=== PATIENT | male | born 1975 | race Asian ===

== ENCOUNTER 2018-01-28 20:16 | Emergency (ER) | payer MEDICAID ==
[~2018-01-28] VITALS: Ht 180.3 cm; Wt 68.0 kg
[~2018-01-28 20:16] MED LIST: NKM
--- NOTE | 2018-01-28 20:29 | Emergency Room Report ---
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 He performs acupuncture on himself daily. He has chronic neck pain for at least 7 years. In the past he's actually caused lung damage by inserting acupuncture deals to his chest. The pain is severe. Rated 10/10 sharp and aching. Radiates to base of his skull and back of his head. 3 days ago he used acupuncture on the right side of his neck. This ended up causing warmth and then numbness in the left lower leg. The numbness has persisted. The patient denies any fevers or chills. No NVD. No change vision. Aside from numbness as above, no other weakness, incontinence. No blood thinners. No trauma. (Dagoberto Singletary M.D.) Allergies: Coded Allergies: No Known Allergies (Unverified , 01/28/18) Patient History Past Medical History: see triage record Social History: Reports: smoking, drug use Social History Narrative at home Reviewed Nursing Documentation: PMH: Agreed; PSxH: Agreed (Dagoberto Singletary M.D.) Nursing Documentation-PMH Past Medical History: No Stated History (Dagoberto Singletary M.D.) Review of Systems All Other Systems: negative except mentioned in HPI (Dagoberto Singletary M.D.) Physical Exam Vital Signs Date Time Temp Pulse Resp B/P (MAP) Pulse Ox O2 Delivery O2 Flow Rate FiO2 01/28/18 20:08 97.6 90 18 138/89 100 Room Air 97.5 Sp02 EP Interpretation: reviewed, normal General Appearance: well appearing, GCS 15, moderate distress Head: normocephalic Eyes: bilateral eye normal inspection, bilateral eye PERRL ENT: moist mucus membranes - poor dentition Neck: no bony tend, tender - R side Respiratory: chest non-tender, lungs clear, normal breath sounds Cardiovascular #1: regular rate, rhythm Cardiovascular #2: 2+ radial (R) Gastrointestinal: normal inspection, non tender, no mass, non-distended, decreased bowel sounds, scaphoid Genitourinary: no CVA tenderness Musculoskeletal: back normal, gait/station normal, normal range of motion Neurologic: alert, oriented x3, 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 Differential includes reflex cephalgia, exacerbation of neck pain, exacerbation of chronic pain, hematoma amongst others. In addition he has new left leg numbness for 3 days from use of his acupuncture needles. Intracranial bleeding or pathology is not suspected. However CT C-spine with contrast is indicated due to the left leg numbness it's new looking for hematoma. In addition a chest x-ray and labs and EKG will be obtained. The patient will receive a dose of IV Toradol for pain. Labs positive for amphetamine. Patient is improved. Resting calmly and stated pain much better. Awaiting CT results (signed out to Dr. Smith). Laboratory Tests Test 01/28/18 21:10 01/28/18 22:15 White Blood Count 11.0 K/UL (4.8-10.8) H Red Blood Count 5.63 M/UL (4.70-6.10) Hemoglobin 16.9 G/DL (14.2-18.0) Hematocrit 48.8 % (42.0-52.0) Mean Corpuscular Volume 87 FL (80-99) Mean Corpuscular Hemoglobin 30.0 PG (27.0-31.0) Mean Corpuscular Hemoglobin Concent 34.6 G/DL (32.0-36.0) Red Cell Distribution Width 9.8 % (11.6-14.8) L Platelet Count 189 K/UL (150-450) Mean Platelet Volume 7.5 FL (6.5-10.1) Neutrophils (%) (Auto) 80.2 % (45.0-75.0) H Lymphocytes (%) (Auto) 12.5 % (20.0-45.0) L Monocytes (%) (Auto) 6.3 % (1.0-10.0) Eosinophils (%) (Auto) 0.4 % (0.0-3.0) Basophils (%) (Auto) 0.6 % (0.0-2.0) Erythrocyte Sedimentation Rate 1 MM/HR (0-15) Prothrombin Time 10.5 SEC (9.30-11.50) Prothrombin Time INR 1.0 (0.9-1.1) PTT 28 SEC (23-33) Sodium Level 137 MMOL/L (136-145) Potassium Level 3.8 MMOL/L (3.5-5.1) Chloride Level 103 MMOL/L (98-107) Carbon Dioxide Level 25 MMOL/L (21-32) Anion Gap 9 mmol/L (5-15) Blood Urea Nitrogen 15 mg/dL (7-18) Creatinine 0.8 MG/DL (0.55-1.30) Estimate Glomerular Filtration Rate > 60 mL/min (>60) Glucose Level 120 MG/DL (74-106) H Calcium Level 8.7 MG/DL (8.5-10.1) Total Bilirubin 1.0 MG/DL (0.2-1.0) Aspartate Amino Transferase (AST) 46 U/L (15-37) H Alanine Aminotransferase (ALT) 74 U/L (12-78) Alkaline Phosphatase 80 U/L (46-116) C-Reactive Protein, Quantitative < 0.4 mg/dL (0.00-0.90) Total Protein 6.9 G/DL (6.4-8.2) Albumin 3.8 G/DL (3.4-5.0) Globulin 3.1 g/dL Albumin/Globulin Ratio 1.2 (1.0-2.7) Urine Opiates Screen Negative (NEGATIVE) Urine Barbiturates Screen Negative (NEGATIVE) Phencyclidine (PCP) Screen Negative (NEGATIVE) Urine Amphetamines Screen Positive (NEGATIVE) H Urine Benzodiazepines Screen Negative (NEGATIVE) Urine Cocaine Screen Negative (NEGATIVE) Urine Marijuana (THC) Screen Negative (NEGATIVE) (Dagoberto Singletary M.D.) ER Course Patient signout to me for results of CT of the neck. If negative patient go home. The next day. Patient discharged on per Dr. Singletary's instructions. (IVY SMITH M.D.) Chest X-Ray Diagnostic Results Chest X-Ray Diagnostic Results : Chest X-Ray Ordered: Yes # of Views/Limited/Complete: 1 View Indication: Other EP Interpretation: Yes Interpretation: no consolidation, no effusion, no pneumothorax Impression: No acute disease (Dagoberto Singletary M.D.) CT/MRI/US Diagnostic Results CT/MRI/US Diagnostic Results : Imaging Test Ordered: CT c spine contrast (Dagoberto Singletary M.D.) CT/MRI/US Diagnostic Results : Imaging Test Ordered: CT C-spine with IV contrast Impression read by radiologist. Negative. (IVY SMITH M.D.) Last Vital Signs Date Time Temp Pulse Resp B/P (MAP) Pulse Ox O2 Delivery O2 Flow Rate FiO2 01/29/18 00:35 97.5 73 18 128/88 100 Room Air 97.5 Status: improved (Dagoberto Singletary M.D.) Disposition: HOME, SELF-CARE Condition: Improved Scripts Ibuprofen* (MOTRIN*) 600 Mg Tablet 600 MG ORAL Q6H PRN for For Pain, #20 TAB Prov: Dagoberto Singletary M.D. 01/28/18 Dagoberto Singletary M.D. Jan 28, 2018 20:28 IVY SMITH M.D. Jan 29, 2018 00:13
[2018-01-28] MEDS ORDERED: Isovue-300 100ml vial INJ PRN (20:30)
[2018-01-28] MEDS ORDERED: Ketorolac 30mg Inj IV ONE (20:30)
[2018-01-28 21:30] LABS: BASOPHILS % (AUTO) 0.6 % (0.0-2.0); EOSINOPHILS % (AUTO) 0.4 % (0.0-3.0); HEMATOCRIT 48.8 % (42.0-52.0); HEMOGLOBIN 16.9 G/DL (14.2-18.0); LYMPHOCYTES % (AUTO) 12.5 % (20.0-45.0); MEAN CORPUSCULAR VOLUME 87 FL (80-99); MONOCYTES % (AUTO) 6.3 % (1.0-10.0); NEUTROPHILS % (AUTO) 80.2 % (45.0-75.0); PLATELET COUNT 189 K/UL (150-450); RED BLOOD COUNT 5.63 M/UL (4.70-6.10); RED CELL DISTRIBUTION WIDTH 9.8 % (11.6-14.8)
[2018-01-28 21:33] LABS: ANION GAP 9 mmol/L (5-15); BLOOD UREA NITROGEN 15 mg/dL (7-18); CALCIUM 8.7 MG/DL (8.5-10.1); CARBON DIOXIDE 25 MMOL/L (21-32); CHLORIDE 103 MMOL/L (98-107); CREATININE 0.8 MG/DL (0.55-1.30); POTASSIUM 3.8 MMOL/L (3.5-5.1); SODIUM 137 MMOL/L (136-145)
[2018-01-28 21:38] LABS: ALANINE AMINOTRANSFERASE 74 U/L (12-78); ALBUMIN 3.8 G/DL (3.4-5.0); ALBUMIN/GLOBULIN RATIO 1.2 (1.0-2.7); ALKALINE PHOSPHATASE 80 U/L (46-116); ASPARTATE AMINO TRANSFERASE 46 U/L (15-37)
[2018-01-28] MEDS ORDERED: IBUPROFEN600 MG ORAL (23:08)
[2018-01-29 00:34] VITALS: BP 128/88
[2018-01-29 00:35] VITALS: BP 128/88
--- NOTE | 2018-01-29 11:00 | Diagnostic Imaging Report ---
Indication: Chest pain Technique: One view of the chest Comparison: none Findings: Lungs and pleural spaces are clear. Heart size is normal Impression: No acute process
--- NOTE | 2018-01-29 13:01 | Diagnostic Imaging Report ---
Indication: Trauma, neck pain, left lower leg numbness after cervical acupuncture Technique: IV administration nonionic contrast. Spiral acquisitions obtained through the cervical spine. Multiplanar reconstructions were generated. Total dose length product mGycm. CTDIvol(s) 362 mGy. Dose reduction achieved using automated exposure control Comparison: none Findings: Bony alignment is normal. Vertebral body heights are preserved. Disc spaces are preserved. The disc spaces are preserved. The bilateral common and internal carotid arteries, bilateral vertebral arteries appear to be patent and intact. No evidence of epidural abscess. At C2-3, there is central posterior disc protrusion which may impinge slightly upon the anterior aspect of the cord but does not significantly narrow the spinal canal. The neural foramina are preserved. At C5-6, there is broad-based posterior disc protrusion which results in borderline narrowing the spinal canal. No significant neural foraminal stenosis. At C6-7, mild facet arthrosis results in minimal bilateral neural foraminal narrowing. At C7-T1, there is mild right neural foraminal stenosis due to bilateral facet arthrosis. The surrounding soft tissues are unremarkable. No evidence of cervical abscess. The included lung apices are clear. The upper aerodigestive tract appears unremarkable. No unusual contrast enhancement demonstrated Impression: Essentially unremarkable exam. No findings to explain etiology of stated clinical history of neurological symptoms after self attempted acupuncture Consider MRI for more sensitive characterization of the neural elements of the spinal canal, if clinically indicated The CT scanner at [facility] is accredited by the [employer] and the scans are performed using protocols designed to limit radiation exposure to as low as reasonably achievable to attain images of sufficient resolution adequate for diagnostic evaluation. Cervical spine
== END 2018-01-29 00:37 | disposition home or self-care (01) ==
LOC: EDBD 20:16 → EMR 20:26
DX: M54.2 Cervicalgia (principal); F15.10 Other stimulant abuse, uncomplicated
CPT/HCPCS: 36415; 71045; 72126; 80053; 80307; 85025; 85610; 85651; 85730; 86140; 96361; 96374; 99284; J1885; Q9967

== ENCOUNTER 2018-02-01 17:06 | Emergency (ER) | payer MEDICAID ==
[~2018-02-01] VITALS: Ht 180.3 cm; Wt 68.0 kg
[~2018-02-01 17:06] MED LIST changes: +IBUPROFEN600 MG ORAL
[2018-02-01 17:43] VITALS: BP 165/117
[2018-02-01] MEDS ORDERED: Ketorolac 30mg Inj IM ONE (17:45)
--- NOTE | 2018-02-01 17:57 | Emergency Room Report ---
History of Present Illness General Chief Complaint: Neck Pain Source: Patient (Regino Graf) Present Illness HPI 42-year-old male patient presents ER complaining of headache and neck pain for past few days. Patient was placed seen in ER for similar symptoms a few days ago as well as neck pain following acupuncture, reports paraesthesias in left lower leg at that time. Labs and CT of her neck at that time were negative. Reports continued pain since that time. Denies fever, chest pain, shortness of breath. Planing of left-sided head pain. Denies cough, phonophobia or vision loss. Reports sensitivity to light. Denies vomiting. Reports took Aleve for relief of pain prior to arrival to ER, reports was able to drive to ER himself. Denies recent injury or trauma. (Regino Graf) Allergies: Coded Allergies: No Known Allergies (Unverified , 01/28/18) Patient History Past Medical History: see triage record Reviewed Nursing Documentation: PMH: Agreed; PSxH: Agreed (Regino Graf) Nursing Documentation-PMH Past Medical History: No Stated History Hx Neurological Problems: Yes - mom has anurysm (Regino Graf) Review of Systems All Other Systems: negative except mentioned in HPI (Regino Graf) Physical Exam Vital Signs Date Time Temp Pulse Resp B/P (MAP) Pulse Ox O2 Delivery O2 Flow Rate FiO2 02/01/18 17:24 98.7 88 16 165/117 96 Room Air 98.8 Sp02 EP Interpretation: reviewed, normal General Appearance: well appearing, no apparent distress, alert, GCS 15, non- toxic Head: normocephalic, atraumatic Eyes: bilateral eye normal inspection, bilateral eye PERRL ENT: hearing grossly normal, normal pharynx, no angioedema, normal voice, uvula midline, moist mucus membranes Neck: full range of motion Respiratory: lungs clear, normal breath sounds, no rhonchi, no respiratory distress, no accessory muscle use, no wheezing, speaking full sentences Cardiovascular #1: regular rate, rhythm, no edema Gastrointestinal: non tender, soft, no mass, non-distended, no guarding, no rebound Genitourinary: no CVA tenderness Musculoskeletal: back normal, digits/nails normal, gait/station normal, normal range of motion, non-tender Neurologic: alert, oriented x3, 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 Cruz is my supervising Physician whom patient management has been discussed with. (Regino Graf) Diagnostic Impression: Primary Impression: Subarachnoid hematoma ER Course Pt presents to ED c/o headache. DDX considered but are not limited to migraine, cluster RIOS, tension RIOS, meningitis, ICH, HTN, sprain, strain, muscle spasm. negative Kernig, negative Brudzinski, patient afebrile,low suspicion for meningitis. no focal neuro deficits, cranial nerves intact as tested, however due to continue complains of pain and patient's complaint of new-onset worst headache, will order CT of head. VITAL SIGNS are WNL, patient is afebrile. blood pressure mildly elevated, will continue to monitor. ORDERS: - CT head - Metoclopramide 10mg IM for pain, N/V; possible SE: tics, spasm; CI seizures, HTN - Benadryl 25mg IM ; possible SE: drowsiness - Toradol ER COURSE: provide patient with Reglan, Benadryl, Toradol for RIOS migraine. CT of head shows possible hematoma in upper cervical neck, consult with radiologist who advised to repeat CT of neck from patient previous ER visit. Consul with Dr. Cruz, ordered CBC, CMP, PT, PTT. CBC mild elevation of WBCs, patient afebrile, will order blood cultures and provide patient with Vanco abx. CMP unremarkable PT/PTT WNL UA unremarkable, no signs of infection. CT Cervical spine extra-axial hematoma and subarachnoid space. Informed patient of results. Consult with Dr. Cruz, order metoprolol for patient on a blood pressure Patient ordered to be NPO. Patient is AOx3, neurologically intact, nontoxic appearing, and ambulatory. blood pressure rechecked, improved. consult Dr. Cruz, will attempt to transfer patient to neurosurgery department of another hospital. Patient signed out to Dr. Lora. - Please note that this Emergency Department Report was dictated using navigaya technology software, occasionally this can lead to erroneous entry secondary to interpretation by the dictation equipment. Labs Test 02/01/18 18:41 02/01/18 19:24 White Blood Count 15.7 K/UL (4.8-10.8) Red Blood Count 5.45 M/UL (4.70-6.10) Hemoglobin 17.3 G/DL (14.2-18.0) Hematocrit 48.7 % (42.0-52.0) Mean Corpuscular Volume 89 FL (80-99) Mean Corpuscular Hemoglobin 31.7 PG (27.0-31.0) Mean Corpuscular Hemoglobin Concent 35.4 G/DL (32.0-36.0) Red Cell Distribution Width 10.0 % (11.6-14.8) Platelet Count 208 K/UL (150-450) Mean Platelet Volume 6.6 FL (6.5-10.1) Neutrophils (%) (Auto) 79.4 % (45.0-75.0) Lymphocytes (%) (Auto) 12.5 % (20.0-45.0) Monocytes (%) (Auto) 6.4 % (1.0-10.0) Eosinophils (%) (Auto) 1.0 % (0.0-3.0) Basophils (%) (Auto) 0.6 % (0.0-2.0) Prothrombin Time 10.8 SEC (9.30-11.50) Prothromb Time International Ratio 1.0 (0.9-1.1) Activated Partial Thromboplast Time 30 SEC (23-33) Sodium Level 137 MMOL/L (136-145) Potassium Level 3.8 MMOL/L (3.5-5.1) Chloride Level 102 MMOL/L (98-107) Carbon Dioxide Level 29 MMOL/L (21-32) Anion Gap 6 mmol/L (5-15) Blood Urea Nitrogen 17 mg/dL (7-18) Creatinine 0.9 MG/DL (0.55-1.30) Estimat Glomerular Filtration Rate > 60 mL/min (>60) Glucose Level 99 MG/DL (74-106) Calcium Level 9.5 MG/DL (8.5-10.1) Total Bilirubin 0.9 MG/DL (0.2-1.0) Aspartate Amino Transf (AST/SGOT) 41 U/L (15-37) Alanine Aminotransferase (ALT/SGPT) 70 U/L (12-78) Alkaline Phosphatase 85 U/L (46-116) Total Protein 7.7 G/DL (6.4-8.2) Albumin 4.3 G/DL (3.4-5.0) Globulin 3.4 g/dL Albumin/Globulin Ratio 1.3 (1.0-2.7) Urine Color Pale yellow Urine Appearance Clear Urine pH 6 (4.5-8.0) Urine Specific [place] 1.015 (1.005-1.035) Urine Protein Negative (NEGATIVE) Urine Glucose (UA) Negative (NEGATIVE) Urine Ketones Negative (NEGATIVE) Urine Blood Negative (NEGATIVE) Urine Nitrite Negative (NEGATIVE) Urine Bilirubin Negative (NEGATIVE) Urine Urobilinogen Normal MG/DL (0.0-1.0) Urine Leukocyte Esterase Negative (NEGATIVE) (Regino Graf) ER Course Patient signout to me. He was here 4 days ago with neck pain and is on clip bolter and wrapper. Because of his continual pain he was sent here. He was discharged home and came back today because of pain continue. No neurological deficit. CT scan showed decreasing hematoma. We are attempting to transfer the patient but so far unsuccessful. I discussed the case with DIMA Cleary at [facility]. Because patient has decreasing hematoma and has been neurologically intact for the last 4 days, he is stable to wait for an MRI. If there is an epidural abscess, he will accept the patient for transfer. Patient has been stable through the night. He's walking to the bathroom without any difficulty. I will sign the patient out to Dr. Rodriguez for MRI and possible transfer. (IVY SMITH M.D.) ER Course Overnight unable to transfer patient due to full capacity. [facility] requested an MRI MRI performed this morning. Showed possibility of a neoplasm versus a hematoma. Patient still continuing to have pain along with focal neurological deficits Discussed with Dr Millan (neurosurgery) at [facility]. He agreed to accept the patient however no beds are available at this time We attempted to transfer via insurance and unable to contact insurance at this time We contacted [facility], [facility], [facility]; no beds are available (Checo Rodriguez MD) ER Course Patient accepted by [facility] - Dr. Michel. Toradol repeated for pain. Clinically stable for transfer to higher level of care. (Dagoberto Singletary M.D.) ER Course Patient was seen by me. Patient was noted to have concerning CT imaging. Contacted multiple neurosurgery facilities however, no beds available at this time. Patient was endorsed to . (Roni Cruz MD) CT/MRI/US Diagnostic Results CT/MRI/US Diagnostic Results #1: Imaging Test Ordered: CT head Impression Impression: 13 x 7 by at least 16 mm hyperattenuating lesion in the proximal cervical canal, presumably extra-axial hematoma; uncertain as to whether subdural or subarachnoid. Probably present in retrospect on earlier cervical spine CT the smaller currently. Further evaluation with cervical spine CT is recommended. No acute intracranial hemorrhage, edema, or mass effect demonstrated. CT/MRI/US Diagnostic Results #2: Imaging Test Ordered: CT cervical spine Impression Very unusual finding of extra-axial presumed hematoma, probably within the subarachnoid space. This results in compression of the proximal cervical cord. In retrospect, however, this was evident on prior study of 01/28/2018, and the size of this has decreased significantly as has the degree of cord impingement since that study. No unusual contrast enhancement to suggest pseudoaneurysm. However, there is narrowing of the vertebral artery after it enters the foramen magnum. This could just be chronic/developmental, but basal spasm secondary to subarachnoid blood or vasospasm secondary to arterial injury cannot be completely ruled out. The lesion is also immediately adjacent to the PICA, although PICA does appear to be intact. Mild degenerative changes, as described (Regino Graf) Last Vital Signs Date Time Temp Pulse Resp B/P (MAP) Pulse Ox O2 Delivery O2 Flow Rate FiO2 02/01/18 17:43 98.8 16 165/117 96 Room Air 98.8 02/01/18 17:24 88 (Regino Graf) Last Vital Signs Date Time Temp Pulse Resp B/P (MAP) Pulse Ox O2 Delivery O2 Flow Rate FiO2 02/02/18 18:30 98.7 62 16 155/92 100 Room Air 98.7 Status: improved (Dagoberto Singletary M.D.) Disposition: XFER SHT-TRM HOSP Condition: Serious Referrals: NOT CHOSEN IPA/,REFERRING (PCP) Regino Graf Feb 01, 2018 17:57 IVY SMITH M.D. Feb 02, 2018 00:02 Checo Rodriguez MD Feb 02, 2018 14:58 Dagoberto Singletary M.D. Feb 02, 2018 15:41 Roni Cruz MD Feb 02, 2018 16:53
--- NOTE | 2018-02-01 18:40 | Diagnostic Imaging Report ---
Indications: Headache and neck pain, history of recent acupuncture Technique: Spiral acquisitions obtained through the brain. Angled axial and coronal 5 x 5 mm slices were reconstructed. Total dose length product 1463.97 mGycm. CTDI vol(s) 70.38 mGy. Dose reduction achieved using automated exposure control Comparison: Reference made to cervical spine CT dated 01/28/2018 Findings: On the lowest cuts, within the proximal right posterior cervical spinal canal just below the foramen magnum, there is a hyperdense presumed hematoma which measures 13 mm transverse by 7 mm AP by at least 16 mm craniocaudad; caudad extent not completely visualized. Uncertain as to whether subdural or subarachnoid, although current acute margins suggest the latter. This results in some mass effect, impinging upon the posterior aspect of the proximal cord. In retrospect, subtle but larger hyperattenuating area was the lead evident in this area on prior cervical spine CT; previously, this extended above the foramen magnum, and caudad to the mid C2 level. This appears smaller currently although is incompletely visualized. No other acute intracranial hemorrhage nor edema, mass effect, nor midline shift is demonstrated normal lopez-white differentiation. Normal-sized ventricles and extra-axial CSF spaces. Visualized orbits are unremarkable. There is ethmoid and sphenoid sinus disease. The mastoids are clear. The calvarium is intact. Impression: 13 x 7 by at least 16 mm hyperattenuating lesion in the proximal cervical canal, presumably extra-axial hematoma; uncertain as to whether subdural or subarachnoid. Probably present in retrospect on earlier cervical spine CT the smaller currently. Further evaluation with cervical spine CT is recommended. No acute intracranial hemorrhage, edema, or mass effect demonstrated. Critical value findings and recommendation phoned to Regino Graf in the emergency room at the time of interpretation The CT scanner at [facility] is accredited by the [employer] and the scans are performed using protocols designed to limit radiation exposure to as low as reasonably achievable to attain images of sufficient resolution adequate for diagnostic evaluation.
[2018-02-01] MEDS ORDERED: Isovue-300 100ml vial INJ PRN (18:45)
[2018-02-01 18:56] LABS: BASOPHILS % (AUTO) 0.6 % (0.0-2.0); HEMATOCRIT 48.7 % (42.0-52.0); HEMOGLOBIN 17.3 G/DL (14.2-18.0); LYMPHOCYTES % (AUTO) 12.5 % (20.0-45.0); MEAN CORPUSCULAR VOLUME 89 FL (80-99); MONOCYTES % (AUTO) 6.4 % (1.0-10.0); NEUTROPHILS % (AUTO) 79.4 % (45.0-75.0); PLATELET COUNT 208 K/UL (150-450); RED BLOOD COUNT 5.45 M/UL (4.70-6.10); WHITE BLOOD COUNT 15.7 K/UL (4.8-10.8)
[2018-02-01] MEDS ORDERED: Metoprolol 5mg/5ml Inj IVP ONE (19:00)
[2018-02-01 19:06] LABS: ANION GAP 6 mmol/L (5-15); BLOOD UREA NITROGEN 17 mg/dL (7-18); CALCIUM 9.5 MG/DL (8.5-10.1); CARBON DIOXIDE 29 MMOL/L (21-32); CHLORIDE 102 MMOL/L (98-107); CREATININE 0.9 MG/DL (0.55-1.30); POTASSIUM 3.8 MMOL/L (3.5-5.1); SODIUM 137 MMOL/L (136-145)
[2018-02-01 19:10] LABS: ALANINE AMINOTRANSFERASE 70 U/L (12-78); ALBUMIN 4.3 G/DL (3.4-5.0); ALBUMIN/GLOBULIN RATIO 1.3 (1.0-2.7); ALKALINE PHOSPHATASE 85 U/L (46-116); ASPARTATE AMINO TRANSFERASE 41 U/L (15-37); BILIRUBIN,TOTAL 0.9 MG/DL (0.2-1.0)
[2018-02-01 19:32] LABS: APPEARANCE,URINE CLEAR; BILIRUBIN, URINE NEGATIVE (NEGATIVE); COLOR,URINE PALE YELLOW; GLUCOSE, URINE (UA) NEGATIVE (NEGATIVE); KETONES,URINE NEGATIVE (NEGATIVE); LEUKOCYTE ESTERASE ,URINE NEGATIVE (NEGATIVE); NITRITE,URINE NEGATIVE (NEGATIVE); PH,URINE 6 (4.5-8.0); PROTEIN,URINE NEGATIVE (NEGATIVE); UROBILINOGEN,URINE NORMAL MG/DL (0.0-1.0)
[2018-02-01 19:35] VITALS: BP 149/68
--- NOTE | 2018-02-01 20:12 | Diagnostic Imaging Report ---
Indication: Headache and neck pain on the left side, status post self-administered acupuncture Technique: Precontrast spiral acquisitions obtained through the cervical spine. IV administration nonionic contrast. Spiral acquisitions obtained through the cervical spine. Multiplanar reconstructions were generated. Total dose length product total 54 mGycm. CTDIvol(s) 25 x 2 mGy. Radiation dose was minimized using automated exposure control Comparison: 01/28/2018 post contrast only study Findings: There is an extra-axial high attenuation lesion in the proximal cervical spinal canal, extending from the foramen magnum to the level of C1. This currently measures 15 mm transverse by 11 mm AP by 2.1 mm craniocaudad. It is ovoid in appearance, as acute margins with abuts the wall of the spinal canal. It is much smaller than on the previous exam, at which time this lesion, visible in retrospect, measured 25 mm transverse by 22 mm AP by approximately 37 mm craniocaudad. At that time, extending well above the foramen magnum and contact of the inferior left cerebellar tonsil, and extended to below the level of the C1 arch, almost to the level of the C2 arch. There is decreased compression of the proximal cervical cord, although the AP dimension of the spinal canal is narrowed to 9 mm and the cord is deviated to the right of midline. Postcontrast images demonstrate variable areas of narrowing of the left vertebral artery after it enters the foramen magnum. Currently, the hematoma does not directly contact the left vertebral artery, but it is immediately adjacent to the PICA. No enhancement of the hematoma to suggest pseudoaneurysm is demonstrated. No other extra-axial mass or other extra-axial pathology demonstrated. At C2-3, there is mild central posterior disc protrusion which does not result in any significant narrowing the spinal canal. At C5-6, there is mild degenerative disc narrowing. Facet arthrosis results in minimal narrowing of the left neural foramen. Posterior osteophytes and minimal central posterior disc protrusion results in borderline narrowing the spinal canal. At C6-7, mild neural foraminal narrowing results from facet arthrosis. There are ventral posterior osteophytes. These do not significantly narrow the spinal canal. At C7-T1, there is bilateral mild neural foraminal stenosis due to facet arthrosis. The included lung apices are clear. The extra spinal soft tissues are unremarkable. Impression: Very unusual finding of extra-axial presumed hematoma, probably within the subarachnoid space. This results in compression of the proximal cervical cord. In retrospect, however, this was evident on prior study of 01/28/2018, and the size of this has decreased significantly as has the degree of cord impingement since that study. No unusual contrast enhancement to suggest pseudoaneurysm. However, there is narrowing of the vertebral artery after it enters the foramen magnum. This could just be chronic/developmental, but basal spasm secondary to subarachnoid blood or vasospasm secondary to arterial injury cannot be completely ruled out. The lesion is also immediately adjacent to the PICA, although PICA does appear to be intact. Mild degenerative changes, as described . Critical value findings discussed by phone with Dr. Cruz in the emergency room at the time of interpretation The CT scanner at [facility] is accredited by the [employer] and the scans are performed using protocols designed to limit radiation exposure to as low as reasonably achievable to attain images of sufficient resolution adequate for diagnostic evaluation.
[2018-02-01 21:58] VITALS: BP 147/98
[2018-02-01] MEDS ORDERED: Acetaminophen 500mg (ES) tab ORAL ONE ×2 (22:06→22:15)
[2018-02-01] MEDS ORDERED: Vancomycin 1 GM in NS 275 ML IVPB ONE (22:30)
[2018-02-01] MEDS ORDERED: Gadavist 7.5mMol/7.5ml vial IV PRN (23:45)
[2018-02-01 23:54] VITALS: BP 128/85
[2018-02-02] VITALS (8 sets, daily range): BP systolic 133–155; BP diastolic 77–94
[2018-02-02] MEDS ORDERED: Norco 5mg/325mg tab ORAL ONE ×3 (04:15→12:30)
[2018-02-02] MEDS ORDERED: Ketorolac 30mg Inj IV ONE (14:45)
--- NOTE | 2018-02-04 18:02 | Diagnostic Imaging Report ---
Indication: Reason For Exam: PAIN Technique: Sagittal T1 FLAIR, sagittal T2 FRFSE, sagittal STIR, axial T2 FRFSE, pre and postcontrast axial T1 fat saturated, postcontrast sagittal T1 FSE fat saturated images obtained of the cervical spine Comparison: Cervical spine CT dated 02/01/2018 and 01/28/2018 Findings: Within the left posterior upper cervical canal between the foramen magnum and the C1 ring, corresponding to the lesion described on recent CT scan, there is an extra-axial intradural mass which measures 17 x 9 x 21 mm. This demonstrates mixed mostly slightly low T2 signal, mixed mostly slightly high T1 signal. This compresses the posterior lateral aspect of the spinal cord at this level. There is underlying cord myelomalacia demonstrated centrally. This is seen on the T2-weighted images. This lesion demonstrates some peripheral enhancement on the postcontrast images. This lesion appears to be intimately related to the posterior inferior cerebellar artery. The bony alignment is normal. Vertebral body marrow signal is normal. The disc spaces are preserved. The vertebral body heights are preserved. At C4-5, there is minimal bilateral neural foraminal narrowing due to facet arthrosis. At C5-6, there is mild right, mild to moderate left neural foraminal narrowing due to facet arthrosis. At C6-7, there is mild to moderate bilateral neural foraminal stenosis due to facet arthrosis. At the remaining disc levels, no significant disc bulge or protrusion, spinal stenosis, or neural foraminal narrowing. Impression: 17 x 9 x 21 mm extra-axial intradural lesion in the left posterior lateral aspect of the upper cervical canal just below the foramen magnum, corresponding to abnormality described on recent CT scan. This results in compression of the posterior lateral aspect of the spinal cord, as reported on prior CT and there is underlying cervical myelomalacia. Given history of neurological symptoms developing after trauma to this area and given evolution of findings on prior sequential CT scans, favor that this represents a focal hematoma within the subarachnoid space. Adjacency of the PICA raises possibility of trauma to this vessel as etiology. Given the presence of some peripheral enhancement, the possibility of a small pseudoaneurysm or other vascular trauma should be considered. Alternatively, findings could represent an intradural extra-axial mass with peripheral enhancement. Central myelomalacia of the proximal cervical cord, presumably related to the above Mild multilevel neural foraminal stenosis, as detailed above A preliminary report was previously provided to the emergency room by Dipesh. This essentially agrees, with some variation as to the conclusions
== END 2018-02-02 19:41 | disposition short-term general hospital (02) ==
LOC: EMR 17:39
DX: I60.9 Nontraumatic subarachnoid hemorrhage, unspecified (principal)
CPT/HCPCS: 36415; 70450; 72127; 72156; 80053; 81003; 85025; 85610; 85730; 87040; 87181; 96365; 96372; 96375; 99285; A9585; J1885; J3370; J7050; Q9967

== ENCOUNTER 2018-03-05 11:34 | Emergency (ER) | payer MEDICAID ==
[~2018-03-05] VITALS: Ht 180.3 cm; Wt 63.5 kg
[2018-03-05 11:52] VITALS: BP 136/97
[2018-03-05] MEDS ORDERED: Gadavist 7.5mMol/7.5ml vial IV PRN (12:00)
--- NOTE | 2018-03-05 12:22 | Emergency Room Report ---
History of Present Illness General Chief Complaint: Pain Source: Patient Present Illness HPI Patient is a 42-year-old male brought in by self after increased left arm tingling. Patient had the recent surgery at [facility] for similar symptoms. The patient denied any fever. He reports having increased left upper extremity numbness per patient had a prolonged hospitalization at [facility].The patient had been vomiting. He denies any headache. Allergies: Coded Allergies: No Known Allergies (Unverified , 01/28/18) Patient History Past Medical History: see triage record Reviewed Nursing Documentation: PMH: Agreed; PSxH: Agreed Nursing Documentation-PMH Past Medical History: No History, Except For Hx Neurological Problems: Yes - mom has anurysm Review of Systems All Other Systems: negative except mentioned in HPI Physical Exam Vital Signs Date Time Temp Pulse Resp B/P (MAP) Pulse Ox O2 Delivery O2 Flow Rate FiO2 03/05/18 11:41 98.2 91 17 136/97 98 Room Air Sp02 EP Interpretation: reviewed, normal General Appearance: normal inspection, well appearing, no apparent distress, alert, GCS 15 Head: atraumatic ENT: normal ENT inspection, hearing grossly normal, normal voice Neck: normal inspection, full range of motion, supple, no bony tend Respiratory: normal inspection, lungs clear, normal breath sounds, no respiratory distress, no retraction, no wheezing Cardiovascular #1: regular rate, rhythm, no edema Gastrointestinal: normal inspection, normal bowel sounds, non tender, soft, no guarding, no hernia Genitourinary: no CVA tenderness Musculoskeletal: normal inspection, back normal, normal range of motion Neurologic: normal inspection, alert, oriented x3, responsive, weigh boss III-XII nml as tested, speech normal Psychiatric: normal inspection, judgement/insight normal, mood/affect normal Skin: normal inspection, normal color, no rash Medical Decision Making Diagnostic Impression: Primary Impression: Seroma ER Course The patient presented for left upper extremity numbness. The differential diagnosis included was not limited to CVA, abscess, post surgical infection and among others.Because of complexity of patient's case laboratory testing and imaging studies were ordered. The patient was noted to have evidence of prior surgery to his neck. CT imaging of the head showed moderate sized seroma. There is no evidence of cord compression. Post Surgical changes are noted. The patient is advised to follow -up with his neurosurgeon's at [facility] and to contact them today for to arrange an appointment. Labs Test 03/05/18 12:00 White Blood Count 6.6 K/UL (4.8-10.8) Red Blood Count 4.61 M/UL (4.70-6.10) Hemoglobin 13.6 G/DL (14.2-18.0) Hematocrit 40.1 % (42.0-52.0) Mean Corpuscular Volume 87 FL (80-99) Mean Corpuscular Hemoglobin 29.6 PG (27.0-31.0) Mean Corpuscular Hemoglobin Concent 34.0 G/DL (32.0-36.0) Red Cell Distribution Width 11.2 % (11.6-14.8) Platelet Count 303 K/UL (150-450) Mean Platelet Volume 6.5 FL (6.5-10.1) Neutrophils (%) (Auto) 72.0 % (45.0-75.0) Lymphocytes (%) (Auto) 18.7 % (20.0-45.0) Monocytes (%) (Auto) 8.1 % (1.0-10.0) Eosinophils (%) (Auto) 0.3 % (0.0-3.0) Basophils (%) (Auto) 0.8 % (0.0-2.0) Prothrombin Time 11.2 SEC (9.30-11.50) Prothromb Time International Ratio 1.1 (0.9-1.1) Activated Partial Thromboplast Time 27 SEC (23-33) Sodium Level 140 MMOL/L (136-145) Potassium Level 4.1 MMOL/L (3.5-5.1) Chloride Level 104 MMOL/L (98-107) Carbon Dioxide Level 26 MMOL/L (21-32) Anion Gap 10 mmol/L (5-15) Blood Urea Nitrogen 9 mg/dL (7-18) Creatinine 0.9 MG/DL (0.55-1.30) Estimat Glomerular Filtration Rate > 60 mL/min (>60) Glucose Level 105 MG/DL (74-106) Calcium Level 9.2 MG/DL (8.5-10.1) Total Bilirubin 0.7 MG/DL (0.2-1.0) Aspartate Amino Transf (AST/SGOT) 23 U/L (15-37) Alanine Aminotransferase (ALT/SGPT) 40 U/L (12-78) Alkaline Phosphatase 79 U/L (46-116) Total Protein 6.9 G/DL (6.4-8.2) Albumin 3.8 G/DL (3.4-5.0) Globulin 3.1 g/dL Albumin/Globulin Ratio 1.2 (1.0-2.7) Last Vital Signs Date Time Temp Pulse Resp B/P (MAP) Pulse Ox O2 Delivery O2 Flow Rate FiO2 03/05/18 11:52 98.2 17 136/97 98 Room Air 03/05/18 11:41 91 Status: improved Disposition: HOME, SELF-CARE Condition: Stable Roni Cruz MD Mar 05, 2018 12:22
[2018-03-05 12:27] LABS: ANION GAP 10 mmol/L (5-15); BLOOD UREA NITROGEN 9 mg/dL (7-18); CALCIUM 9.2 MG/DL (8.5-10.1); CARBON DIOXIDE 26 MMOL/L (21-32); CHLORIDE 104 MMOL/L (98-107); CREATININE 0.9 MG/DL (0.55-1.30); POTASSIUM 4.1 MMOL/L (3.5-5.1); SODIUM 140 MMOL/L (136-145)
[2018-03-05 12:30] LABS: BASOPHILS % (AUTO) 0.8 % (0.0-2.0); EOSINOPHILS % (AUTO) 0.3 % (0.0-3.0); HEMATOCRIT 40.1 % (42.0-52.0); HEMOGLOBIN 13.6 G/DL (14.2-18.0); INR 1.1 (0.9-1.1); LYMPHOCYTES % (AUTO) 18.7 % (20.0-45.0); MEAN CORPUSCULAR VOLUME 87 FL (80-99); MONOCYTES % (AUTO) 8.1 % (1.0-10.0); PLATELET COUNT 303 K/UL (150-450); RED BLOOD COUNT 4.61 M/UL (4.70-6.10); RED CELL DISTRIBUTION WIDTH 11.2 % (11.6-14.8); WHITE BLOOD COUNT 6.6 K/UL (4.8-10.8)
[2018-03-05 12:38] LABS: ALANINE AMINOTRANSFERASE 40 U/L (12-78); ALBUMIN 3.8 G/DL (3.4-5.0); ALBUMIN/GLOBULIN RATIO 1.2 (1.0-2.7); ALKALINE PHOSPHATASE 79 U/L (46-116); ASPARTATE AMINO TRANSFERASE 23 U/L (15-37); BILIRUBIN,TOTAL 0.7 MG/DL (0.2-1.0)
--- NOTE | 2018-03-05 13:19 | Diagnostic Imaging Report ---
Indication: History of acute hemorrhage at the area of the foramen magnum. Patient status post surgery performed at [facility]. Patient presents now with dizziness and ataxia. Technique: Contiguous 5 mm thick transaxial imaging of the head obtained in a Siemens Sensation [address] scanner. Soft tissue and bone windows generated. Automatic Exposure Control was utilized. Total Dose length Product (DLP): 1773.[address] Dose Index Volume (CTDIvol): 70.38 mGy Comparison: 02/01/2018 CT head and MRI cervical spine Findings: Patient is status post the interval suboccipital craniectomy for decompression of the region of the foramen magnum and evacuation of an acute hematoma seen posterior to the cervical medullary junction on the previous occasion. Currently there is a moderate-sized fluid collection within the surgical bed posterior to the posterior wall the thecal sac within the paraspinous region in keeping with the recent surgery. The thecal sac appears normal without evidence of mass effect. The cord is visualized and shows no evidence of compression. The spinal canal of the upper cervical cord and foramen magnum appears capacious. There is no acute bleed identified. The cerebellum, fourth ventricle and basal cisterns appear normal. Supratentorial brain appears normal. There is no hydrocephalus. No mass effect, edema or acute hemorrhage identified. No midline shift identified. IMPRESSION: No evidence of acute upper cervical or intracranial hemorrhage, mass effect or edema. Status post evacuation of a cervical medullary junction hematoma. Suboccipital craniectomy and resection of the C1 posterior elements noted. Postoperative seroma demonstrated within the surgical bed. These are expected findings given the very recent surgery. Findings were discussed via telephone with Dr. Cruz in the emergency Department. The CT scanner at [facility] is accredited by the [employer] and the scans are performed using dose optimization techniques as appropriate to a performed exam including Automatic Exposure control.
[2018-03-05 13:58] VITALS: BP 134/95
== END 2018-03-05 14:01 | disposition home or self-care (01) ==
LOC: EMR 13:13
DX: L76.34 Postprocedural seroma of skin and subcutaneous tissue following other procedure (principal); Y83.9 Surgical procedure, unspecified as the cause of abnormal reaction of the patient, or of later complication, without mention of misadventure at the time of the procedure; Y92.239 Unspecified place in hospital as the place of occurrence of the external cause
CPT/HCPCS: 36415; 70450; 80053; 85025; 85610; 85730; 99284

== ENCOUNTER 2019-09-08 07:09 | Emergency (ER) | payer MEDICAID, OTHER ==
[~2019-09-08] VITALS: Ht 170.2 cm; Wt 77.1 kg
[~2019-09-08 07:09] MED LIST changes: +BACTRIM DS TAB1 EAC1 ORAL; +CEPHALEXIN500 MG ORAL
--- NOTE | 2019-09-08 07:10 | NUR ---
ED Nurse Note: Pt arrived with RA [id number] from home c/o chronic neck pain x 1 week. pt denies trauma.
[2019-09-08 07:11] VITALS: BP 155/110
--- NOTE | 2019-09-08 07:29 | NUR ---
ED Nurse Note: IV line established, patent and intact. blood specimen sent to lab
[2019-09-08] MEDS ORDERED: Gadavist 7.5mMol/7.5ml vial IV PRN ×2 (07:30)
--- NOTE | 2019-09-08 07:36 | NUR ---
ED Nurse Note: Urine specimen sent to lab
[2019-09-08] MEDS ORDERED: cefTRIAXone 1 GM in NS 55 ML IVPB ONE (07:45)
[2019-09-08 07:58] LABS: BASOPHILS % (AUTO) 0.8 % (0.0-2.0); EOSINOPHILS % (AUTO) 2.3 % (0.0-3.0); HEMATOCRIT 47.4 % (42.0-52.0); HEMOGLOBIN 16.4 G/DL (14.2-18.0); LYMPHOCYTES % (AUTO) 22.3 % (20.0-45.0); MEAN CORPUSCULAR VOLUME 83 FL (80-99); MONOCYTES % (AUTO) 6.4 % (1.0-10.0); NEUTROPHILS % (AUTO) 68.2 % (45.0-75.0); PLATELET COUNT 241 K/UL (150-450); RED BLOOD COUNT 5.69 M/UL (4.70-6.10); WHITE BLOOD COUNT 7.6 K/UL (4.8-10.8)
[2019-09-08 08:00] LABS: ANION GAP 9 mmol/L (5-15); BLOOD UREA NITROGEN 13 mg/dL (7-18); CALCIUM 9.1 MG/DL (8.5-10.1); CARBON DIOXIDE 28 MMOL/L (21-32); CHLORIDE 104 MMOL/L (98-107); SODIUM 141 MMOL/L (136-145)
[2019-09-08 08:07] LABS: INR 0.9 (0.9-1.1)
[2019-09-08 08:08] LABS: ALANINE AMINOTRANSFERASE 21 U/L (12-78); ALBUMIN 3.8 G/DL (3.4-5.0); ALBUMIN/GLOBULIN RATIO 1.2 (1.0-2.7); ALKALINE PHOSPHATASE 95 U/L (46-116); ASPARTATE AMINO TRANSFERASE 19 U/L (15-37); BILIRUBIN,TOTAL 0.9 MG/DL (0.2-1.0)
[2019-09-08] MEDS ORDERED: Omnipaque-300 100ml vial INJ PRN (08:15)
[2019-09-08] MEDS ORDERED: Omnipaque-300 100ml vial INJ ONE (08:15)
--- NOTE | 2019-09-08 08:18 | NUR ---
ED Nurse Note: Pt taken to CT on wheel chair with construction equipment technician
--- NOTE | 2019-09-08 08:46 | NUR ---
ED Nurse Note: Pt returned from CT on wheel chair.
[2019-09-08 09:23] VITALS: BP 145/98
[2019-09-08] MEDS ORDERED: ROBAXIN-500MG ORAL (09:48)
[2019-09-08] MEDS ORDERED: CEPHALEXIN500 MG ORAL (09:48)
--- NOTE | 2019-09-08 09:51 | Diagnostic Imaging Report ---
Indication: Facial pain and swelling on left side of face and neck, status post self administration of acupuncture Technique: IV administration nonionic contrast. Spiral acquisitions obtained through the neck and facial bones. Multiplanar reconstructions were generated. Total dose length product 271 mGycm. CTDIvol(s) 52, 102, 5 mGy. Dose reduction achieved using automated exposure control Comparison: Reference made to cervical spine MRI and CT dated 02/01/2018 and 02/02/2018 Findings: There is generalized swelling of the soft tissues of the left side of the face. There is infiltration of the subcutaneous fat. There is thickening of the superficial muscles of mastication extending well cephalad into the temporalis muscle. No discrete wall enhancing collections to suggest abscess are evident. There are some small areas of low-attenuation measuring up to 7 mm in diameter adjacent and cephalad to the external auditory canal which could conceivably represent small abscesses most likely represent small fat deposits. No unusual contrast enhancement is demonstrated. Within the facial soft tissues just anterior to the ear lobe, there is a linear metallic foreign body, presumably a retained needle which measures 2 cm in length. This is just superficial to the superficial lobe of the left parotid gland, although the more cephalad aspect may be within the parotid gland There is very unusual appearance to the left zygomatic arch, which demonstrates fairly extensive new bone formation extending along the periphery and cephalad. There is also irregularity of the inferior aspect of the temporal bone, where there is marked regularity of the glenoid fossa as well as some fragmentation of the mandibular head. Previously demonstrated hematoma in the foramen magnum/proximal spinal canal is no longer evident. Patient as undergone a posterior C1 laminectomy in the interim. Slight irregularity of the posterior wall of the foramen magnum is similar to the prior exam. No cervical mass or adenopathy. Prominent but not frankly enlarged anterior triangle nodes are seen on the left. The visualized intracranial structures are currently unremarkable. The upper mediastinum is unremarkable. The thyroid is unremarkable. The nasopharynx, oropharynx, hypopharynx, and larynx are unremarkable. The included upper lungs are clear. Impression: Diffuse swelling of the subcutaneous fat and muscles of mastication in the left side of the face, consistent with cellulitis/myositis. No definite abscess. Irregular small subcentimeter low-attenuation areas adjacent to the external auditory canal represent small abscesses, most likely represent fat pockets. 2 cm long linear foreign body, presumably a retained needle given stated clinical history, in the left superficial facial soft tissues. Marked irregularity of the zygomatic arch with extensive new bone formation, suggesting that this is at least in part a chronic process. There is also some irregularity of the glenoid fossa and fragmentation of the mandibular neck with a pathologic fracture. The possibility of osteomyelitis should be considered, although there are no discrete osteolytic lesions. Interim resolution of previously noted upper spine/foramen magnum epidural hematoma. Interim C1 laminectomy. Prominent but not frankly enlarged left-sided lymph nodes, presumably reactive Findings discussed by phone with Dr. Cruz in the emergency room at the time of interpretation The CT scanner at [facility] is accredited by the [employer] and the scans are performed using protocols designed to limit radiation exposure to as low as reasonably achievable to attain images of sufficient resolution adequate for diagnostic evaluation.
[2019-09-08 09:57] VITALS: BP 150/96
--- NOTE | 2019-09-08 09:58 | NUR ---
ER DISCHARGE NOTE: Patient is cleared to be discharged per ERMD, pt is aox4, on room air, with stable vital signs. pt was given dc and prescription instructions, pt was able to verbalize understanding, pt id band and iv site removed without complications. pt is able to ambulate with steady gait. pt took all belongings.
--- NOTE | 2019-09-08 10:29 | Emergency Room Report ---
History of Present Illness General Chief Complaint: Neck Pain Source: Patient Present Illness HPI Patient is 43-year-old male who presents after increased neck pain and left- sided facial discomfort. Patient had previous history of subdural hematoma and spinal injury. Patient had recent hospitalization in [facility]. Reports having increased pain with movements. Denies any fever. Denies any recent trauma. He had been performing acupuncture on himself and had previously been seen at this hospital after spinal hematoma. He denies any fever. Reports having generalized pain. Previous history of methamphetamine use. Allergies: Coded Allergies: No Known Allergies (Unverified , 01/28/18) COVID-19 Screening Contact w/high risk pt: No Recent Travel to affected area: No Experienced COVID-19 symptoms?: No Patient History Past Medical History: see triage record Reviewed Nursing Documentation: PMH: Agreed; PSxH: Agreed Nursing Documentation-PMH Past Medical History: No Stated History Hx Neurological Problems: Yes - mom has anurysm Review of Systems All Other Systems: negative except mentioned in HPI Physical Exam Vital Signs Date Time Temp Pulse Resp B/P (MAP) Pulse Ox O2 Delivery O2 Flow Rate FiO2 09/08/19 07:05 98.4 70 19 155/110 (125) 99 09/08/19 07:11 Room Air Sp02 EP Interpretation: reviewed, normal General Appearance: normal inspection, alert, GCS 15 Head: atraumatic ENT: normal ENT inspection, hearing grossly normal, normal voice, other - Left- sided facial swelling and induration without any erythema Neck: normal inspection, full range of motion, supple, no bony tend Respiratory: normal inspection, lungs clear, normal breath sounds, no respiratory distress, no retraction, no wheezing Cardiovascular #1: regular rate, rhythm, no edema Gastrointestinal: normal inspection, normal bowel sounds, non tender, soft, no guarding, no hernia Genitourinary: no CVA tenderness Musculoskeletal: normal inspection, back normal, normal range of motion Neurologic: alert, motor strength/tone normal, program trainer III-XII nml as tested, oriented x3, responsive, speech normal, normal inspection Psychiatric: normal inspection, judgement/insight normal, mood/affect normal Medical Decision Making Diagnostic Impression: Primary Impression: Foreign body (FB) in soft tissue Additional Impression: Facial cellulitis ER Course Patient presented for left-sided facial pain and neck pain. Differential diagnosis include was not limited to abscess, contusion, foreign body, substance abuse among others. Because of complexity of patient's case laboratory tests and imaging studies were ordered. CT imaging of the neck read by radiology showed some significant calcification to the left side of his face as well as some soft tissue swelling as well as to radiopaque foreign body consistent with residual needles. See radiology report for full details. Patient's cervical spine showed no evidence of fracture and postsurgical changes are evident. There is no evidence of abscess. Patient was given prescription for muscle relaxant as well as a antibiotics after being given antibiotics in the emergency department. He had previously been given schedule for ENT evaluation and biopsy. Patient was advised to return if he began having any worsening of condition or other concerns. He was advised not to perform acupuncture on himself again. Labs Test 09/08/19 07:30 White Blood Count 7.6 K/UL (4.8-10.8) Red Blood Count 5.69 M/UL (4.70-6.10) Hemoglobin 16.4 G/DL (14.2-18.0) Hematocrit 47.4 % (42.0-52.0) Mean Corpuscular Volume 83 FL (80-99) Mean Corpuscular Hemoglobin 28.8 PG (27.0-31.0) Mean Corpuscular Hemoglobin Concent 34.6 G/DL (32.0-36.0) Red Cell Distribution Width 11.0 % (11.6-14.8) Platelet Count 241 K/UL (150-450) Mean Platelet Volume 5.6 FL (6.5-10.1) Neutrophils (%) (Auto) 68.2 % (45.0-75.0) Lymphocytes (%) (Auto) 22.3 % (20.0-45.0) Monocytes (%) (Auto) 6.4 % (1.0-10.0) Eosinophils (%) (Auto) 2.3 % (0.0-3.0) Basophils (%) (Auto) 0.8 % (0.0-2.0) Erythrocyte Sedimentation Rate 3 MM/HR (0-15) Prothrombin Time 10.1 SEC (9.30-11.50) Prothromb Time International Ratio 0.9 (0.9-1.1) Activated Partial Thromboplast Time 27 SEC (23-33) Sodium Level 141 MMOL/L (136-145) Potassium Level 4.0 MMOL/L (3.5-5.1) Chloride Level 104 MMOL/L (98-107) Carbon Dioxide Level 28 MMOL/L (21-32) Anion Gap 9 mmol/L (5-15) Blood Urea Nitrogen 13 mg/dL (7-18) Creatinine 1.0 MG/DL (0.55-1.30) Estimat Glomerular Filtration Rate > 60 mL/min (>60) Glucose Level 111 MG/DL (74-106) Calcium Level 9.1 MG/DL (8.5-10.1) Total Bilirubin 0.9 MG/DL (0.2-1.0) Aspartate Amino Transf (AST/SGOT) 19 U/L (15-37) Alanine Aminotransferase (ALT/SGPT) 21 U/L (12-78) Alkaline Phosphatase 95 U/L (46-116) Total Protein 7.1 G/DL (6.4-8.2) Albumin 3.8 G/DL (3.4-5.0) Globulin 3.3 g/dL Albumin/Globulin Ratio 1.2 (1.0-2.7) Urine Opiates Screen Negative (NEGATIVE) Urine Barbiturates Screen Negative (NEGATIVE) Phencyclidine (PCP) Screen Negative (NEGATIVE) Urine Amphetamines Screen Positive (NEGATIVE) Urine Benzodiazepines Screen Negative (NEGATIVE) Urine Cocaine Screen Negative (NEGATIVE) Urine Marijuana (THC) Screen Negative (NEGATIVE) Last Vital Signs Date Time Temp Pulse Resp B/P (MAP) Pulse Ox O2 Delivery O2 Flow Rate FiO2 09/08/19 09:57 98.6 74 20 150/96 100 Room Air Status: improved Disposition: HOME, SELF-CARE Condition: Stable Scripts Cephalexin* (KEFLEX*) 500 Mg Capsule 500 MG ORAL EVERY 6 HOURS, #28 CAP Prov: Roni Cruz MD 09/08/19 Methocarbamol* (ROBAXIN-500*) 500 Mg Tablet 500 MG ORAL TID PRN for For Pain, #15 TAB 0 Refills Prov: Roni Cruz MD 09/08/19 Patient Instructions: Cellulitis Additional Instructions: Follow up with ENT for foreign body removal and further workup. Do not put perform accupuncture on your self. Roni Cruz MD September 08, 2019 10:29
== END 2019-09-08 09:58 | disposition home or self-care (01) ==
LOC: EDBD 07:09 → EMR 07:19
DX: L03.211 Cellulitis of face (principal); M79.5 Residual foreign body in soft tissue; M54.2 Cervicalgia
CPT/HCPCS: 36415; 70488; 70491; 80053; 80307; 85025; 85610; 85651; 85730; 86850; 86900; 86901; 96365; J0696; Q9967; Z7502; 99284

== ENCOUNTER 2019-10-15 07:57 | Inpatient (IN) | payer MEDICAID ==
[~2019-10-15] VITALS: Ht 172.7 cm; Wt 77.1 kg
[2019-10-15] VITALS (8 sets, daily range): BP systolic 138–162; BP diastolic 86–114
[~2019-10-15 07:57] MED LIST changes: +ROBAXIN-500MG ORAL
[2019-10-15] MEDS ORDERED: LORazepam Inj 2mg/ml 1ml IV ONE (08:30)
[2019-10-15 09:26] LABS: ANION GAP 17 mmol/L (5-15); BLOOD UREA NITROGEN 17 mg/dL (7-18); CALCIUM 8.9 MG/DL (8.5-10.1); CARBON DIOXIDE 22 MMOL/L (21-32); CHLORIDE 104 MMOL/L (98-107); CREATININE 1.4 MG/DL (0.55-1.30); POTASSIUM 3.3 MMOL/L (3.5-5.1); SODIUM 143 MMOL/L (136-145)
[2019-10-15 09:31] LABS: ALANINE AMINOTRANSFERASE 54 U/L (12-78); ALBUMIN 4.2 G/DL (3.4-5.0); ALBUMIN/GLOBULIN RATIO 1.3 (1.0-2.7); ALKALINE PHOSPHATASE 101 U/L (46-116); ASPARTATE AMINO TRANSFERASE 42 U/L (15-37); BILIRUBIN,TOTAL 0.6 MG/DL (0.2-1.0)
[2019-10-15 09:33] LABS: HEMATOCRIT 44.4 % (42.0-52.0); HEMOGLOBIN 15.7 G/DL (14.2-18.0); MEAN CORPUSCULAR VOLUME 81 FL (80-99); PLATELET COUNT 187 K/UL (150-450); RED BLOOD COUNT 5.48 M/UL (4.70-6.10); RED CELL DISTRIBUTION WIDTH 10.7 % (11.6-14.8); WHITE BLOOD COUNT 17.9 K/UL (4.8-10.8)
--- NOTE | 2019-10-15 10:50 | Emergency Room Report ---
History of Present Illness General Chief Complaint: Behavioral Complaint Source: Medical Record Present Illness HPI Disclaimer: Please note that this report is being documented using [employer] technology. This can lead to erroneous entry secondary to incorrect interpretation by the dictating instrument. HPI: 44-year-old male history of schizophrenia, methamphetamine abuse presented from home due to facial trauma. Patient has a history of a cyst reportedly in the left cheek. He apparently performs self acupuncture to the site and last night after using methamphetamine felt the area was swollen and started stabbing it with a chopstick. Apparently the Chapstick broke off inside his cheek. EMS was called to his home and transported to the ER. He denies any other trauma. Planes of facial pain that is 8 out of 10 worse with palpation and nonradiating. Patient seen earlier in the month for the same. At that time he did have a facial CT demonstrating a foreign body in the soft tissue consistent with a needle. PMH: Schizophrenia PSH: Reviewed Social Hx: Patient smokes and uses methamphetamine Allergies: Coded Allergies: No Known Allergies (Unverified , 01/28/18) COVID-19 Screening Contact w/high risk pt: No Recent Travel to affected area: No Experienced COVID-19 symptoms?: No COVID-19 Testing performed PANTRY WORKER: No Patient History Reviewed Nursing Documentation: PMH: Agreed; PSxH: Agreed Nursing Documentation-PMH Past Medical History: No History, Except For Hx Neurological Problems: Yes - mom has anurysm Review of Systems All Other Systems: negative except mentioned in HPI Physical Exam Vital Signs Date Time Temp Pulse Resp B/P (MAP) Pulse Ox O2 Delivery O2 Flow Rate FiO2 10/15/19 07:57 97.7 144 20 143/107 (119) 99 Room Air Sp02 EP Interpretation: reviewed, normal General Appearance: other - Patient arrived mildly agitated, facial trauma noted Head: normocephalic, other - Left temporal region swollen, multiple small lacerations, tender to palpation, with probable underlying hematoma Eyes: bilateral eye PERRL, bilateral eye EOMI ENT: hearing grossly normal, moist mucus membranes Neck: full range of motion, supple Respiratory: lungs clear, normal breath sounds, no rhonchi, no respiratory distress, no retraction, no wheezing Cardiovascular #1: normal peripheral pulses, no murmur, tachycardia Gastrointestinal: non tender, soft, non-distended, no guarding Neurologic: alert, oriented x3, no focal defects Skin: normal color, warm/dry, other - Multiple lacerations noted to left temporal area Medical Decision Making Diagnostic Impression: Primary Impression: Foreign body (FB) in soft tissue Additional Impression: Methamphetamine abuse ER Course MDM: Differential diagnosis included but not limited to facial contusion, multiple lacerations of the face, foreign body, facial fracture, facial cellulitis to name a few Clinical course-patient had IV inserted IV fluids given, Ativan given. Patient was tachycardic on arrival and mildly agitated I suspect due to his methamphetamine abuse. CT scan of the face did demonstrate what appeared to be a chopstick in the soft tissue of the left face. It did appear deep, I spoke with surgery on-call Dr. Segal in the ER who agreed to come evaluate the patient. He did evaluate the patient and stated patient would benefit most from transfer to outside facility for higher level of care, ENT and surgical intervention. Patient was capitated to [facility] so we spoke with [facility] to arrange transfer. Labs - Laboratory Tests Test 10/15/19 08:40 White Blood Count 17.9 K/UL (4.8-10.8) H Red Blood Count 5.48 M/UL (4.70-6.10) Hemoglobin 15.7 G/DL (14.2-18.0) Hematocrit 44.4 % (42.0-52.0) Mean Corpuscular Volume 81 FL (80-99) Mean Corpuscular Hemoglobin 28.6 PG (27.0-31.0) Mean Corpuscular Hemoglobin Concent 35.4 G/DL (32.0-36.0) Red Cell Distribution Width 10.7 % (11.6-14.8) L Platelet Count 187 K/UL (150-450) Mean Platelet Volume 6.5 FL (6.5-10.1) Neutrophils (%) (Auto) % (45.0-75.0) Lymphocytes (%) (Auto) % (20.0-45.0) Monocytes (%) (Auto) % (1.0-10.0) Eosinophils (%) (Auto) % (0.0-3.0) Basophils (%) (Auto) % (0.0-2.0) Differential Total Cells Counted 100 Neutrophils % (Manual) 91 % (45-75) H Lymphocytes % (Manual) 8 % (20-45) L Monocytes % (Manual) 1 % (1-10) Eosinophils % (Manual) 0 % (0-3) Basophils % (Manual) 0 % (0-2) Band Neutrophils 0 % (0-8) Platelet Estimate Adequate Platelet Morphology Normal Sodium Level 143 MMOL/L (136-145) Potassium Level 3.3 MMOL/L (3.5-5.1) L Chloride Level 104 MMOL/L (98-107) Carbon Dioxide Level 22 MMOL/L (21-32) Anion Gap 17 mmol/L (5-15) H Blood Urea Nitrogen 17 mg/dL (7-18) Creatinine 1.4 MG/DL (0.55-1.30) H Estimated Glomerular Filtration Rate 54.6 mL/min (>60) Glucose Level 109 MG/DL (74-106) H Calcium Level 8.9 MG/DL (8.5-10.1) Total Bilirubin 0.6 MG/DL (0.2-1.0) Aspartate Amino Transferase (AST) 42 U/L (15-37) H Alanine Aminotransferase (ALT) 54 U/L (12-78) Alkaline Phosphatase 101 U/L (46-116) Total Protein 7.4 G/DL (6.4-8.2) Albumin 4.2 G/DL (3.4-5.0) Globulin 3.2 g/dL Albumin/Globulin Ratio 1.3 (1.0-2.7) Urine Opiates Screen Negative (NEGATIVE) Urine Barbiturates Screen Negative (NEGATIVE) Phencyclidine (PCP) Screen Negative (NEGATIVE) Urine Amphetamines Screen Positive (NEGATIVE) H Urine Benzodiazepines Screen Negative (NEGATIVE) Urine Cocaine Screen Negative (NEGATIVE) Urine Marijuana (THC) Screen Negative (NEGATIVE) Serum Alcohol < 3 mg/dL On reevaluation: Patient's face remains swollen and tender along the left temporal region Plan-. Patient accepted at [facility] for higher level of care. CT/MRI/US Diagnostic Results CT/MRI/US Diagnostic Results : Imaging Test Ordered: CT scan of the facial bones Impression FINDINGS: As noted on prior exam, there is significant soft tissue swelling and edema noted in the left temporal/left cheek region. In the left temporal/upper cheek region, there is a new linear foreign body identified embedded above the zygomatic arch. This foreign body measures 3.7 cm. According to history, patient was stabbing this swollen area with a chopstick and this may be a retained fragment of the chopstick. Besides is linear foreign body fragment, there are 2 metallic wire-like fragments in the left temporal region which were present previously. The degree of focal soft tissue swelling and edema has increased. There are also small foci of soft tissue air noted in the left upper sample worker space and left temporal region. This may be related to recent penetrating injury but soft tissue infection is also a consideration. Deformity and bony destruction of the left zygomatic arch noted which appears increased compared to the previous exam. There is focal heterotopic ossification demonstrated. Old fracture of the left mandibular condyle again noted unchanged. Orbits appear intact. The pterygoid plates show normal configuration. Paranasal sinuses are unremarkable. The TMJs are congruent. IMPRESSION: THERE IS A NEW LINEAR FOREIGN BODY IDENTIFIED EMBEDDED IN THE SOFT TISSUE OF THE LEFT TEMPORAL/LEFT UPPER CHEEK REGION JUST ABOVE THE LEFT ZYGOMATIC ARCH. FROM THE PATIENT'S HISTORY, THIS IS LIKELY A RETAINED FRAGMENT OF THE CHOP STICK. FOCAL SOFT TISSUE SWELLING AND EDEMA OF THE LEFT TEMPORAL AND LEFT CHEEK REGION AGAIN NOTED SEEN PREVIOUSLY BUT HAS INCREASED. THERE ARE ALSO SMALL FOCI OF AIR LUCENCIES NOTED WHICH COULD BE RELATED TO THE PENETRATING INJURY OR DEVELOPING SOFT TISSUE INFECTION. THERE ARE METALLIC WIRE-LIKE FOREIGN BODIES NOTED IN THE LEFT TEMPORAL REGION UNCHANGED COMPARED TO PREVIOUS EXAM. REDEMONSTRATION OF DEFORMITY AND BONY DESTRUCTION OF THE LEFT ZYGOMATIC ARCH SLIGHTLY INCREASED COMPARED TO PREVIOUS EXAM. FOCAL HETEROTOPIC OSSIFICATION ALSO AGAIN NOTED. OLD FRACTURE LEFT MANDIBLE CONDYLE UNCHANGED. Last Vital Signs Date Time Temp Pulse Resp B/P (MAP) Pulse Ox O2 Delivery O2 Flow Rate FiO2 10/15/19 08:20 97.7 144 20 143/107 99 Room Air Disposition: ADMITTED INPATIENT - Transferred to higher level of care Condition: Serious Referrals: [facility],REFERRING (PCP) Demetrius Bee M.D. Oct 15, 2019 10:50
[2019-10-15] MEDS ORDERED: ceFAZolin sod 1 GM in NS 55 ML IVPB ONE (11:00)
--- NOTE | 2019-10-15 13:59 | Consultation ---
History of Present Illness General Date patient seen: Oct 15, 2019 Reason for Hospitalization: Behavioral Complaint Present Illness HPI This is a 44-year-old male with history of extensive methamphetamine use as well as other drugs who presented to [facility] complaining of facial trauma. Patient states he does daily acupuncture himself using various instruments including needles but woke up this morning feeling as if he was going to because of some chest discomfort and felt it was all being related to a tightness in his left temporal facial area. He initially began by sticking various items into the area to release the "" vein pressure and when did not improve began to use chopsticks to get better hold of the discomfort and stop the vein from causing his feeling of impending doom. Unfortunately as he stuck the chopstick further into his left temporal facial region deep inside he broke the Chapstick and dislodged it within his face. Began to have significant bleeding and more bleeding came to [facility] for evaluation from home. In ED identified to have bleeding in the left facial region edema hematoma and CT scan with dislodged chopstick fragment. Surgery called to evaluate. Patient seen emergency department. States he has not used meth in over 1-1/2 months. States he has not used anything on cigarettes recently. No nausea vomiting fever chills. States he no longer has the impending doom feeling that he did prior since he was able to relieve the tension in his left temporal region. Patient is pleasant but not very understanding of the situation. I do not think he has the insight to identify the fact that there is a fragment of chopstick broken off into his face with significant bleeding yet he just feels he should be here because he thought he was going to and is not sure what else he should do. Allergies: Coded Allergies: No Known Allergies (Unverified , 01/28/18) COVID-19 Screening Contact w/high risk pt: No Recent Travel to affected area: No Experienced COVID-19 symptoms?: No Medication History Scheduled Cephalexin* (Keflex*), 500 MG ORAL EVERY 6 HOURS Cephalexin* (Keflex*), 500 MG ORAL EVERY 6 HOURS No Known Medications* (NKM - No Known Medications*), 0 ., (Reported) Trimethoprim/Sulfamethoxazole 160/800* (Bactrim Ds Tablet*), 1 TAB ORAL Q12H Scheduled PRN Ibuprofen (Motrin), 600 MG ORAL Q6H PRN for For Pain Methocarbamol* (Robaxin-500*), 500 MG ORAL TID PRN for For Pain Patient History Limited by: medical condition History Provided By: Patient, Medical Record, PMD Healthcare decision maker Resuscitation status Advanced Directive on File Past Medical/Surgical History Past Medical/Surgical History: (1) Seroma (2) Facial cellulitis (3) Methamphetamine abuse (4) Foreign body (FB) in soft tissue Review of Systems Review of Symptoms General ROS: no weight loss or fever Psychological ROS: no depression or mood changes, no memory loss Ophthalmic ROS: no visual changes or eye irritation ENT ROS: no nasal congestion, hearing loss, dizziness Allergy and Immunology ROS: no allergic symptoms or urticaria Hematological and Lymphatic ROS: no swollen glands, unusual bleeding or bruising Endocrine ROS: no polyuria, polydipsia, weight changes, temperature intolerance Respiratory ROS: no cough, shortness of breath, or wheezing Cardiovascular ROS: no chest pain or dyspnea on exertion Gastrointestinal ROS: denies abdominal pain, bright red blood in stool. Musculoskeletal ROS: no myalgias or arthralgias Neurological ROS: no TIA or stroke symptoms Dermatological ROS: no new or changing skin lesions, rashes or pruritis Physical Exam Physical Exam General appearance: alert, cooperative, no distress, appears stated age Head: Traumatic left face significantly swollen periorbital swelling hematoma no active bleeding currently. Eyes: conjunctivae/corneas clear. PERRL, EOM's intact. Fundi benign Throat: Lips, mucosa, and tongue normal. Teeth and gums normal Neck: supple, symmetrical, trachea midline, no adenopathy, thyroid: not enlarged, symmetric, no tenderness/mass/nodules, no carotid bruit and no JVD Lungs: clear to auscultation bilaterally Heart: regular rate and rhythm, S1, S2 normal, no murmur, click, rub or gallop Abdomen: soft, non-tender. Bowel sounds normal. No masses, no organomegaly Extremities: extremities normal, atraumatic, no cyanosis or edema Pulses: 2+ and symmetric Skin: Skin color, texture, turgor normal. No rashes or lesions Neurologic: Grossly normal Last 24 Hour Vital Signs Date Time Temp Pulse Resp B/P (MAP) Pulse Ox O2 Delivery O2 Flow Rate FiO2 10/15/19 13:30 97.8 113 21 143/93 99 Room Air 6/10/20 11:30 97.8 108 19 138/92 98 Room Air 10/15/19 09:50 97.9 114 18 140/94 98 Room Air 10/15/19 08:20 97.7 144 20 143/107 99 Room Air 10/15/19 08:20 144 20 Room Air 10/15/19 07:57 97.7 144 20 143/107 (119) 99 Room Air Laboratory Tests Test 10/15/19 08:40 White Blood Count 17.9 K/UL (4.8-10.8) H Red Blood Count 5.48 M/UL (4.70-6.10) Hemoglobin 15.7 G/DL (14.2-18.0) Hematocrit 44.4 % (42.0-52.0) Mean Corpuscular Volume 81 FL (80-99) Mean Corpuscular Hemoglobin 28.6 PG (27.0-31.0) Mean Corpuscular Hemoglobin Concent 35.4 G/DL (32.0-36.0) Red Cell Distribution Width 10.7 % (11.6-14.8) L Platelet Count 187 K/UL (150-450) Mean Platelet Volume 6.5 FL (6.5-10.1) Neutrophils (%) (Auto) % (45.0-75.0) Lymphocytes (%) (Auto) % (20.0-45.0) Monocytes (%) (Auto) % (1.0-10.0) Eosinophils (%) (Auto) % (0.0-3.0) Basophils (%) (Auto) % (0.0-2.0) Differential Total Cells Counted 100 Neutrophils % (Manual) 91 % (45-75) H Lymphocytes % (Manual) 8 % (20-45) L Monocytes % (Manual) 1 % (1-10) Eosinophils % (Manual) 0 % (0-3) Basophils % (Manual) 0 % (0-2) Band Neutrophils 0 % (0-8) Platelet Estimate Adequate Platelet Morphology Normal Sodium Level 143 MMOL/L (136-145) Potassium Level 3.3 MMOL/L (3.5-5.1) L Chloride Level 104 MMOL/L (98-107) Carbon Dioxide Level 22 MMOL/L (21-32) Anion Gap 17 mmol/L (5-15) H Blood Urea Nitrogen 17 mg/dL (7-18) Creatinine 1.4 MG/DL (0.55-1.30) H Estimat Glomerular Filtration Rate 54.6 mL/min (>60) Glucose Level 109 MG/DL (74-106) H Calcium Level 8.9 MG/DL (8.5-10.1) Total Bilirubin 0.6 MG/DL (0.2-1.0) Aspartate Amino Transf (AST/SGOT) 42 U/L (15-37) H Alanine Aminotransferase (ALT/SGPT) 54 U/L (12-78) Alkaline Phosphatase 101 U/L (46-116) Total Protein 7.4 G/DL (6.4-8.2) Albumin 4.2 G/DL (3.4-5.0) Globulin 3.2 g/dL Albumin/Globulin Ratio 1.3 (1.0-2.7) Urine Opiates Screen Negative (NEGATIVE) Urine Barbiturates Screen Negative (NEGATIVE) Phencyclidine (PCP) Screen Negative (NEGATIVE) Urine Amphetamines Screen Positive (NEGATIVE) H Urine Benzodiazepines Screen Negative (NEGATIVE) Urine Cocaine Screen Negative (NEGATIVE) Urine Marijuana (THC) Screen Negative (NEGATIVE) Serum Alcohol < 3 mg/dL Height (Feet): 5 Height (Inches): 8.00 Weight (Pounds): 170 Assessment/Plan Problem List: (1) Facial cellulitis Assessment & Plan: As noted on prior exam, there is significant soft tissue swelling and edema noted in the left temporal/left cheek region. In the left temporal/upper cheek region, there is a new linear foreign body identified embedded above the zygomatic arch. This foreign body measures 3.7 cm. According to history, patient was stabbing this swollen area with a chopstick and this may be a retained fragment of the chopstick. Besides is linear foreign body fragment, there are 2 metallic wire-like fragments in the left temporal region which were present previously. The degree of focal soft tissue swelling and edema has increased. There are also small foci of soft tissue air noted in the left upper rn hospital space and left temporal region. This may be related to recent penetrating injury but soft tissue infection is also a consideration. Deformity and bony destruction of the left zygomatic arch noted which appears increased compared to the previous exam. There is focal heterotopic ossification demonstrated. Old fracture of the left mandibular condyle again noted unchanged. Orbits appear intact. The pterygoid plates show normal configuration. Paranasal sinuses are unremarkable. The TMJs are congruent. IMPRESSION: THERE IS A NEW LINEAR FOREIGN BODY IDENTIFIED EMBEDDED IN THE SOFT TISSUE OF THE LEFT TEMPORAL/LEFT UPPER CHEEK REGION JUST ABOVE THE LEFT ZYGOMATIC ARCH. FROM THE PATIENT'S HISTORY, THIS IS LIKELY A RETAINED FRAGMENT OF THE CHOP STICK. FOCAL SOFT TISSUE SWELLING AND EDEMA OF THE LEFT TEMPORAL AND LEFT CHEEK REGION AGAIN NOTED SEEN PREVIOUSLY BUT HAS INCREASED. THERE ARE ALSO SMALL FOCI OF AIR LUCENCIES NOTED WHICH COULD BE RELATED TO THE PENETRATING INJURY OR DEVELOPING SOFT TISSUE INFECTION. THERE ARE METALLIC WIRE-LIKE FOREIGN BODIES NOTED IN THE LEFT TEMPORAL REGION UNCHANGED COMPARED TO PREVIOUS EXAM. REDEMONSTRATION OF DEFORMITY AND BONY DESTRUCTION OF THE LEFT ZYGOMATIC ARCH SLIGHTLY INCREASED COMPARED TO PREVIOUS EXAM. FOCAL HETEROTOPIC OSSIFICATION ALSO AGAIN NOTED. OLD FRACTURE LEFT MANDIBLE CONDYLE UNCHANGED. ICD Codes: L03.211 - Cellulitis of face SNOMED: 830695666 (2) Foreign body (FB) in soft tissue Assessment & Plan: 44-year-old male with dislodged chopstick fragment in his left temporal region. Patient did have significant bleeding prior currently hemostatic. History of drug abuse. Currently states he has been clean. CT reviewed as below. Unfortunately this is not a simple outpatient procedure in which I can remove the foreign body in the emergency department and send patient home. This is an extensive concern given the location and surrounding anatomy. The perioral muscles facial nerves and temporal artery are within this region patient has significant swelling the duration of this is unknown there are other fragments noted within the subcutaneous and soft tissue from prior "acupuncture". He is currently stable otherwise. Wound was washed and dressings were applied. Given the extensive nature of the patient's condition he will need ENT evaluation as this would be more appropriate than general surgery given the setting. He is stable for this evaluation. Patient is capitated to outside facility [facility] given insurance reasons safe for transfer and ENT evaluation outside facility. If unable to transfer currently no ENT available here to [facility] and I will be available if necessary. Thank you for let me participate in patient's care ICD Codes: M79.5 - Residual foreign body in soft tissue SNOMED: 302057789, [id number] (3) Methamphetamine abuse ICD Codes: F15.10 - Other stimulant abuse, uncomplicated SNOMED: 296169308 (4) Seroma SNOMED: 108191243 Wade Segal Oct 15, 2019 13:59
[2019-10-15] MEDS ORDERED: Morphine Sulfate 2mg/ml Inj(IV/IM USE ONLY) IVP PRN (22:00)
[2019-10-15] MEDS ORDERED: LORazepam Inj 2mg/ml 1ml IV PRN (22:00)
[2019-10-15] MEDS ORDERED: Morphine Sulfate 4mg/ml Inj (IV USE ONLY) IVP PRN (22:00)
[2019-10-15] MEDS ORDERED: Acetaminophen 650 MG SUPP RECTAL PRN ×2 (22:00)
--- NOTE | 2019-10-15 22:02 | History & Physical ---
History and Physical History & Physicial 44 y/o man with retained foreign body in scientologist/cheek, neck region with soft tissue infection and WBC 18K, ENT and gen surg called who will take pt to OR tomorrow. Will support pt with analgesia and IV fluids overnight, maintain NPO, will also add clinda for empiric coverage given leukocytosis and suspicious findings on CT of poss air Dahlia Ovalles MD Oct 15, 2019 22:02
[2019-10-15] MEDS: Heparin 5000 units/ml inj SUBQ SCH (23:00)
[2019-10-15] MEDS: D5 1/2NS 1,000 ML IV SCH (23:41)
[2019-10-15] MEDS: Clindamycin 900mg 50 ML IV SCH (23:55)
[2019-10-16] VITALS (11 sets, daily range): BP systolic 121–168; BP diastolic 80–103
[2019-10-16] MEDS: Clindamycin 900mg 50 ML IV SCH ×3 (05:35→22:24)
[2019-10-16] MEDS: Heparin 5000 units/ml inj SUBQ SCH ×3 (05:38→22:00)
[2019-10-16 06:52] LABS: ANION GAP 8 mmol/L (5-15); BLOOD UREA NITROGEN 14 mg/dL (7-18); CALCIUM 8.5 MG/DL (8.5-10.1); CARBON DIOXIDE 29 MMOL/L (21-32); CHLORIDE 104 MMOL/L (98-107); CREATININE 0.9 MG/DL (0.55-1.30); POTASSIUM 3.6 MMOL/L (3.5-5.1); SODIUM 141 MMOL/L (136-145)
[2019-10-16 07:17] LABS: BASOPHILS % (AUTO) 0.5 % (0.0-2.0); EOSINOPHILS % (AUTO) 0.5 % (0.0-3.0); HEMATOCRIT 39.2 % (42.0-52.0); LYMPHOCYTES % (AUTO) 16.9 % (20.0-45.0); MEAN CORPUSCULAR VOLUME 82 FL (80-99); MONOCYTES % (AUTO) 7.9 % (1.0-10.0); NEUTROPHILS % (AUTO) 74.2 % (45.0-75.0); PLATELET COUNT 169 K/UL (150-450); RED BLOOD COUNT 4.81 M/UL (4.70-6.10); RED CELL DISTRIBUTION WIDTH 10.5 % (11.6-14.8); WHITE BLOOD COUNT 9.1 K/UL (4.8-10.8)
[2019-10-16] MEDS ORDERED: Lidocaine 1% 10mg/ml/Epi 0.005mg/ml 30ml vial INJ SCH (07:45)
--- NOTE | 2019-10-16 09:24 | Consultation ---
History of Present Illness General Date patient seen: Oct 16, 2019 Chief Complaint: foriegn body Referring physician: ER Present Illness HPI Patient has a history of FB placement in left taoism. He was trying to get a wire out using a chopstick and it broke off. He would like surgery to have it removed. Allergies: Coded Allergies: No Known Allergies (Unverified , 01/28/18) Medication History Scheduled Cephalexin* (Keflex*), 500 MG ORAL EVERY 6 HOURS Cephalexin* (Keflex*), 500 MG ORAL EVERY 6 HOURS No Known Medications* (NKM - No Known Medications*), 0 ., (Reported) Trimethoprim/Sulfamethoxazole 160/800* (Bactrim Ds Tablet*), 1 TAB ORAL Q12H Scheduled PRN Ibuprofen (Motrin), 600 MG ORAL Q6H PRN for For Pain Methocarbamol* (Robaxin-500*), 500 MG ORAL TID PRN for For Pain Patient History History Provided By: Patient Healthcare decision maker Resuscitation status Advanced Directive on File Physical Exam General Appearance: WD/WN, no apparent distress HEENT: other - large edematous area extending from preauricular to periorbital. No purulence. Multiple linear entry sites. No visible or palpable FB. Neurologic: other - uncooperative with FN exam Last 24 Hour Vital Signs Date Time Temp Pulse Resp B/P (MAP) Pulse Ox O2 Delivery O2 Flow Rate FiO2 10/16/19 04:00 98.2 90 19 128/82 (97) 100 10/16/19 00:00 97.7 108 21 132/88 (103) 97 10/15/19 22:37 Room Air 10/15/19 21:32 97.9 123 20 162/114 (130) 98 10/15/19 21:30 98.4 95 20 138/80 98 Room Air 10/15/19 19:25 98.3 106 20 140/86 97 Room Air 10/15/19 17:00 97.7 110 21 140/89 98 Room Air 10/15/19 15:30 97.7 108 21 139/87 97 Room Air 10/15/19 13:30 97.8 113 21 143/93 99 Room Air 10/15/19 11:30 97.8 108 19 138/92 98 Room Air 10/15/19 09:50 97.9 114 18 140/94 98 Room Air Intake and Output 10/15/19 10/16/19 19:00 07:00 Intake Total 1055 ml 300 ml Balance 1055 ml 300 ml Intake Oral 300 ml IV Total 1055 ml # Voids 3 Laboratory Tests Test 10/16/19 04:50 White Blood Count 9.1 K/UL (4.8-10.8) Red Blood Count 4.81 M/UL (4.70-6.10) Hemoglobin 14.0 G/DL (14.2-18.0) L Hematocrit 39.2 % (42.0-52.0) L Mean Corpuscular Volume 82 FL (80-99) Mean Corpuscular Hemoglobin 29.1 PG (27.0-31.0) Mean Corpuscular Hemoglobin Concent 35.7 G/DL (32.0-36.0) Red Cell Distribution Width 10.5 % (11.6-14.8) L Platelet Count 169 K/UL (150-450) Mean Platelet Volume 6.2 FL (6.5-10.1) L Neutrophils (%) (Auto) 74.2 % (45.0-75.0) Lymphocytes (%) (Auto) 16.9 % (20.0-45.0) L Monocytes (%) (Auto) 7.9 % (1.0-10.0) Eosinophils (%) (Auto) 0.5 % (0.0-3.0) Basophils (%) (Auto) 0.5 % (0.0-2.0) Sodium Level 141 MMOL/L (136-145) Potassium Level 3.6 MMOL/L (3.5-5.1) Chloride Level 104 MMOL/L (98-107) Carbon Dioxide Level 29 MMOL/L (21-32) Anion Gap 8 mmol/L (5-15) Blood Urea Nitrogen 14 mg/dL (7-18) Creatinine 0.9 MG/DL (0.55-1.30) Estimat Glomerular Filtration Rate > 60 mL/min (>60) Glucose Level 115 MG/DL (74-106) H Calcium Level 8.5 MG/DL (8.5-10.1) Height (Feet): 5 Height (Inches): 8.00 Weight (Pounds): 170 Medications Current Medications Medications (Trade) Dose Ordered Sig/Barby Route PRN Reason Start Time Stop Time Status Last Admin Dose Admin Acetaminophen (Tylenol) 650 mg Q4H PRN RECTAL Mild Pain (Pain Scale 1-3) 10/15/19 22:00 11/14/19 21:59 Acetaminophen (Tylenol) 650 mg Q4H PRN RECTAL Temp >100.5 10/15/19 22:00 11/14/19 21:59 Clindamycin/ Sodium Chloride 50 ml @ 100 mls/hr Q8HR IV 10/15/19 23:00 10/22/19 22:59 10/16/19 05:35 Dextrose (Dextrose 50%) 25 ml Q30M PRN IV Hypoglycemia 10/15/19 22:00 01/13/20 21:59 Dextrose (Dextrose 50%) 50 ml Q30M PRN IV Hypoglycemia 10/15/19 22:00 01/13/20 21:59 Dextrose/Sodium Chloride 1,000 ml @ 75 mls/hr [id number] IV 10/15/19 22:55 11/14/19 22:54 10/15/19 23:41 Heparin Sodium (Porcine) (Heparin 5000 units/ml) 5,000 units EVERY 8 HOURS SUBQ 10/15/19 23:00 11/29/19 22:59 Lorazepam (Ativan 2mg/ml 1ml) 0.5 mg Q4H PRN IV For Anxiety 10/15/19 22:00 10/22/19 21:59 Morphine Sulfate (Morphine Sulfate) 2 mg Q4H PRN IVP Moderate Pain (Pain Scale 4-6) 10/15/19 22:00 10/22/19 21:59 Morphine Sulfate (Morphine Sulfate) 4 mg Q4H PRN IVP Severe Pain (Pain Scale 7-10) 10/15/19 22:00 10/22/19 21:59 10/15/19 23:31 Ondansetron HCl (Zofran) 4 mg Q6H PRN IVP Nausea & Vomiting 10/15/19 22:00 11/14/19 21:59 Assessment/Plan Problem List: (1) Foreign body (FB) in soft tissue ICD Codes: M79.5 - Residual foreign body in soft tissue SNOMED: 448724708, [id number] Status: doing well, stable Assessment/Plan: Procedure: multiple areas were anesthesized with 1% lidocaine with 1:130033 epi. I then cleansed and prepped with Hibiclens. I used an 11 santa to open. I inserted a hemostat to palpate for the chopstick but was unable to find it. I did removed a wire superiorly. Patient tolerated well. Incisions were closed with interrupted chromic sutures. I will attempt to do a formal removal and exploration in the OR> Patient is to be kept NPO. If this cannot be done tonight patient should be transferred as I am unavailable after today. John Damon MD Oct 16, 2019 09:24
--- NOTE | 2019-10-16 12:38 | History and Physical ---
History of Present Illness General Date patient seen: Oct 16, 2019 Reason for Hospitalization: Behavioral Complaint Present Illness HPI 44-year-old male history of schizophrenia, methamphetamine abuse presented from home due to facial trauma. He has a hx of performing "self acupunctures" where he sticks his jaw/neck area with sharp objects as there is "decreased blood flow around that area." This time, he felt the area was swollen, and stabbed it with a chopstick after using meth. Chopstick broke off and got into his cheek, called 911 and was transported here. He is currently resting rather comfortably in bed. says he needs a bigger surgery to address his "rotting bone in the general area," not just a minor surgery to take the chopstick out. Allergies: Coded Allergies: No Known Allergies (Unverified , 01/28/18) COVID-19 Screening Contact w/high risk pt: No Recent Travel to affected area: No Experienced COVID-19 symptoms?: No Medication History Scheduled Cephalexin* (Keflex*), 500 MG ORAL EVERY 6 HOURS Cephalexin* (Keflex*), 500 MG ORAL EVERY 6 HOURS No Known Medications* (NKM - No Known Medications*), 0 ., (Reported) Trimethoprim/Sulfamethoxazole 160/800* (Bactrim Ds Tablet*), 1 TAB ORAL Q12H Scheduled PRN Ibuprofen (Motrin), 600 MG ORAL Q6H PRN for For Pain Methocarbamol* (Robaxin-500*), 500 MG ORAL TID PRN for For Pain Patient History Healthcare decision maker Resuscitation status Advanced Directive on File Review of Systems Constitutional: Denies: no symptoms, see HPI, chills, sweats, fever, malaise, weakness, other Eye: Denies: no symptoms, see HPI, eye pain, blurred vision, tearing, double vision, nose pain, nose congestion, acuity changes, discharge, other ENT: Reports: other - jaw pain Respiratory: Denies: no symptoms, see HPI, cough, orthopnea, shortness of breath, stridor, wheezing, GRIMALDO, sputum, other Cardiovascular: Denies: no symptoms, see HPI, chest pain, edema, palpitations, syncope, PND, other Gastrointestinal: Denies: no symptoms, see HPI, abdominal pain, constipation, diarrhea, nausea, vomiting, melena, hematemesis, other Genitourinary: Denies: no symptoms, see HPI, discharge, dysuria, frequency, hematuria, pain, retention, incontinence, urgency, vag bleed/dc, other Musculoskeletal: Denies: no symptoms, see HPI, back pain, gout, joint pain, joint swelling, muscle pain, muscle stiffness, other Psychiatric: Denies: no symptoms, see HPI, prior hx, anxiety, depressed feelings, emotional problems, SI, HI, hallucinations, other Neurological: Denies: no symptoms, see HPI, headache, numbness, paresthesia, seizure, tingling, tremors, focal weakness, syncope, dizziness, other Endocrine: Denies: no symptoms, see HPI, excessive sweating, flushing, intolerance to temperature, increased thirst, increased urine, unexplained weight loss, other Hematologic/Lymphatic: Denies: no symptoms, see HPI, anemia, blood clots, easy bleeding, easy bruising, swollen glands, diathesis, other Physical Exam General Appearance: no apparent distress, alert HEENT: other - left jaw area with minor bleeding, puncture wound Neck: supple Respiratory/Chest: lungs clear, normal breath sounds Cardiovascular/Chest: normal rate, regular rhythm Abdomen: non tender, soft Neurologic: alert, oriented x 3 Last 24 Hour Vital Signs Date Time Temp Pulse Resp B/P (MAP) Pulse Ox O2 Delivery O2 Flow Rate FiO2 10/16/19 08:00 98.3 100 21 127/80 (96) 99 10/16/19 04:00 98.2 90 19 128/82 (97) 100 10/16/19 00:00 97.7 108 21 132/88 (103) 97 10/15/19 22:37 Room Air 10/15/19 21:32 97.9 123 20 162/114 (130) 98 10/15/19 21:30 98.4 95 20 138/80 98 Room Air 10/15/19 19:25 98.3 106 20 140/86 97 Room Air 10/15/19 17:00 97.7 110 21 140/89 98 Room Air 10/15/19 15:30 97.7 108 21 139/87 97 Room Air 10/15/19 13:30 97.8 113 21 143/93 99 Room Air Intake and Output 10/15/19 10/16/19 19:00 07:00 Intake Total 1055 ml 300 ml Balance 1055 ml 300 ml Intake Oral 300 ml IV Total 1055 ml # Voids 3 Laboratory Tests Test 10/16/19 04:50 White Blood Count 9.1 K/UL (4.8-10.8) Red Blood Count 4.81 M/UL (4.70-6.10) Hemoglobin 14.0 G/DL (14.2-18.0) L Hematocrit 39.2 % (42.0-52.0) L Mean Corpuscular Volume 82 FL (80-99) Mean Corpuscular Hemoglobin 29.1 PG (27.0-31.0) Mean Corpuscular Hemoglobin Concent 35.7 G/DL (32.0-36.0) Red Cell Distribution Width 10.5 % (11.6-14.8) L Platelet Count 169 K/UL (150-450) Mean Platelet Volume 6.2 FL (6.5-10.1) L Neutrophils (%) (Auto) 74.2 % (45.0-75.0) Lymphocytes (%) (Auto) 16.9 % (20.0-45.0) L Monocytes (%) (Auto) 7.9 % (1.0-10.0) Eosinophils (%) (Auto) 0.5 % (0.0-3.0) Basophils (%) (Auto) 0.5 % (0.0-2.0) Sodium Level 141 MMOL/L (136-145) Potassium Level 3.6 MMOL/L (3.5-5.1) Chloride Level 104 MMOL/L (98-107) Carbon Dioxide Level 29 MMOL/L (21-32) Anion Gap 8 mmol/L (5-15) Blood Urea Nitrogen 14 mg/dL (7-18) Creatinine 0.9 MG/DL (0.55-1.30) Estimat Glomerular Filtration Rate > 60 mL/min (>60) Glucose Level 115 MG/DL (74-106) H Calcium Level 8.5 MG/DL (8.5-10.1) Height (Feet): 5 Height (Inches): 8.00 Weight (Pounds): 170 Medications Current Medications Medications (Trade) Dose Ordered Sig/Barby Route PRN Reason Start Time Stop Time Status Last Admin Dose Admin Acetaminophen (Tylenol) 650 mg Q4H PRN RECTAL Mild Pain (Pain Scale 1-3) 10/15/19 22:00 11/14/19 21:59 Acetaminophen (Tylenol) 650 mg Q4H PRN RECTAL Temp >100.5 10/15/19 22:00 11/14/19 21:59 Clindamycin/ Sodium Chloride 50 ml @ 100 mls/hr Q8HR IV 10/15/19 23:00 10/22/19 22:59 10/16/19 05:35 Dextrose (Dextrose 50%) 25 ml Q30M PRN IV Hypoglycemia 10/15/19 22:00 01/13/20 21:59 Dextrose (Dextrose 50%) 50 ml Q30M PRN IV Hypoglycemia 10/15/19 22:00 01/13/20 21:59 Dextrose/Sodium Chloride 1,000 ml @ 75 mls/hr [id number] IV 10/15/19 22:55 11/14/19 22:54 10/15/19 23:41 Heparin Sodium (Porcine) (Heparin 5000 units/ml) 5,000 units EVERY 8 HOURS SUBQ 10/15/19 23:00 11/29/19 22:59 Lorazepam (Ativan 2mg/ml 1ml) 0.5 mg Q4H PRN IV For Anxiety 10/15/19 22:00 10/22/19 21:59 Morphine Sulfate (Morphine Sulfate) 2 mg Q4H PRN IVP Moderate Pain (Pain Scale 4-6) 10/15/19 22:00 10/22/19 21:59 Morphine Sulfate (Morphine Sulfate) 4 mg Q4H PRN IVP Severe Pain (Pain Scale 7-10) 10/15/19 22:00 10/22/19 21:59 10/15/19 23:31 Ondansetron HCl (Zofran) 4 mg Q6H PRN IVP Nausea & Vomiting 10/15/19 22:00 11/14/19 21:59 Assessment/Plan Problem List: (1) Seroma SNOMED: 315769888 (2) Facial cellulitis ICD Codes: L03.211 - Cellulitis of face SNOMED: 703397666 (3) Methamphetamine abuse ICD Codes: F15.10 - Other stimulant abuse, uncomplicated SNOMED: 463791996 (4) Foreign body (FB) in soft tissue ICD Codes: M79.5 - Residual foreign body in soft tissue SNOMED: 188877222, 44831170 Status: stable Diagnosis [place] I: Mr. Greene is a 44 year old male with meth use hx, schizophrenia, presenting with self-inflicted jaw wound while poking his left jaw with a chopstick and part of it broke off into the jaw and didn't come out. #Self-inflicted jaw wound #Presence of foreign body in soft tissue #Hx of schizophrenia #Hx of meth use #Jaw pain -seen by ENT at bedside, attempted bedside removal of foreign body but was unable to. -will try to see him in OR at 6PM tonight, if unable, he will not be able to see the patient. He needs transfer to a different hospital if OR not ready at 6 PM. -discussed above with CM and smelter charger, will start arranging for hospital trnasfer. -NPO for now. Continue mIVF -Pain control. -outpatient f/u with his schizophrenia and meth use. Spent 76 mins on pt encounter, 40 mins on counseling, coordination of care. d/w RN, CM, smelter charger, consultants (pulm, ENT) Extra 35 mins spent on review of EMR records, including physician documentation , labs, imaging, meds. Time of note doesn't reflect time of encounter. Sean Desai MD Oct 16, 2019 12:38
[2019-10-16] MEDS: D5 1/2NS 1,000 ML IV SCH (12:51)
--- NOTE | 2019-10-16 14:03 | Surgery Progress Note ---
Surgery Progress Note Subjective Additional Comments Patient was is declined for transfer to [facility] Was fortunate to find Dr. Damon ENT who was kind enough to consult and assist with care of patient No acute overnight events Objective Last 24 Hour Vital Signs Date Time Temp Pulse Resp B/P (MAP) Pulse Ox O2 Delivery O2 Flow Rate FiO2 10/16/19 08:00 98.3 100 21 127/80 (96) 99 10/16/19 04:00 98.2 90 19 128/82 (97) 100 10/16/19 00:00 97.7 108 21 132/88 (103) 97 10/15/19 22:37 Room Air 10/15/19 21:32 97.9 123 20 162/114 (130) 98 10/15/19 21:30 98.4 95 20 138/80 98 Room Air 10/15/19 19:25 98.3 106 20 140/86 97 Room Air 10/15/19 17:00 97.7 110 21 140/89 98 Room Air 10/15/19 15:30 97.7 108 21 139/87 97 Room Air I&O Intake and Output 10/15/19 10/16/19 19:00 07:00 Intake Total 1055 ml 300 ml Balance 1055 ml 300 ml Intake Oral 300 ml IV Total 1055 ml # Voids 3 Dressing: saturated Wound: other Drains: other Cardiovascular: RSR Respiratory: decreased breath sounds Abdomen: soft, non-tender, present bowel sounds Extremities: no cyanosis Laboratory Tests Test 10/16/19 04:50 White Blood Count 9.1 K/UL (4.8-10.8) Red Blood Count 4.81 M/UL (4.70-6.10) Hemoglobin 14.0 G/DL (14.2-18.0) L Hematocrit 39.2 % (42.0-52.0) L Mean Corpuscular Volume 82 FL (80-99) Mean Corpuscular Hemoglobin 29.1 PG (27.0-31.0) Mean Corpuscular Hemoglobin Concent 35.7 G/DL (32.0-36.0) Red Cell Distribution Width 10.5 % (11.6-14.8) L Platelet Count 169 K/UL (150-450) Mean Platelet Volume 6.2 FL (6.5-10.1) L Neutrophils (%) (Auto) 74.2 % (45.0-75.0) Lymphocytes (%) (Auto) 16.9 % (20.0-45.0) L Monocytes (%) (Auto) 7.9 % (1.0-10.0) Eosinophils (%) (Auto) 0.5 % (0.0-3.0) Basophils (%) (Auto) 0.5 % (0.0-2.0) Sodium Level 141 MMOL/L (136-145) Potassium Level 3.6 MMOL/L (3.5-5.1) Chloride Level 104 MMOL/L (98-107) Carbon Dioxide Level 29 MMOL/L (21-32) Anion Gap 8 mmol/L (5-15) Blood Urea Nitrogen 14 mg/dL (7-18) Creatinine 0.9 MG/DL (0.55-1.30) Estimat Glomerular Filtration Rate > 60 mL/min (>60) Glucose Level 115 MG/DL (74-106) H Calcium Level 8.5 MG/DL (8.5-10.1) Plan Problems: (1) Facial cellulitis Assessment & Plan: As noted on prior exam, there is significant soft tissue swelling and edema noted in the left temporal/left cheek region. In the left temporal/upper cheek region, there is a new linear foreign body identified embedded above the zygomatic arch. This foreign body measures 3.7 cm. According to history, patient was stabbing this swollen area with a chopstick and this may be a retained fragment of the chopstick. Besides is linear foreign body fragment, there are 2 metallic wire-like fragments in the left temporal region which were present previously. The degree of focal soft tissue swelling and edema has increased. There are also small foci of soft tissue air noted in the left upper supervisor labor gang space and left temporal region. This may be related to recent penetrating injury but soft tissue infection is also a consideration. Deformity and bony destruction of the left zygomatic arch noted which appears increased compared to the previous exam. There is focal heterotopic ossification demonstrated. Old fracture of the left mandibular condyle again noted unchanged. Orbits appear intact. The pterygoid plates show normal configuration. Paranasal sinuses are unremarkable. The TMJs are congruent. IMPRESSION: THERE IS A NEW LINEAR FOREIGN BODY IDENTIFIED EMBEDDED IN THE SOFT TISSUE OF THE LEFT TEMPORAL/LEFT UPPER CHEEK REGION JUST ABOVE THE LEFT ZYGOMATIC ARCH. FROM THE PATIENT'S HISTORY, THIS IS LIKELY A RETAINED FRAGMENT OF THE CHOP STICK. FOCAL SOFT TISSUE SWELLING AND EDEMA OF THE LEFT TEMPORAL AND LEFT CHEEK REGION AGAIN NOTED SEEN PREVIOUSLY BUT HAS INCREASED. THERE ARE ALSO SMALL FOCI OF AIR LUCENCIES NOTED WHICH COULD BE RELATED TO THE PENETRATING INJURY OR DEVELOPING SOFT TISSUE INFECTION. THERE ARE METALLIC WIRE-LIKE FOREIGN BODIES NOTED IN THE LEFT TEMPORAL REGION UNCHANGED COMPARED TO PREVIOUS EXAM. REDEMONSTRATION OF DEFORMITY AND BONY DESTRUCTION OF THE LEFT ZYGOMATIC ARCH SLIGHTLY INCREASED COMPARED TO PREVIOUS EXAM. FOCAL HETEROTOPIC OSSIFICATION ALSO AGAIN NOTED. OLD FRACTURE LEFT MANDIBLE CONDYLE UNCHANGED. (2) Foreign body (FB) in soft tissue Assessment & Plan: 44-year-old male with dislodged chopstick fragment in his left temporal region. Patient did have significant bleeding prior currently hemostatic. History of drug abuse. Currently states he has been clean. CT reviewed as below. Unfortunately this is not a simple outpatient procedure in which I can remove the foreign body in the emergency department and send patient home. This is an extensive concern given the location and surrounding anatomy. The perioral muscles facial nerves and temporal artery are within this region patient has significant swelling the duration of this is unknown there are other fragments noted within the subcutaneous and soft tissue from prior "acupuncture". He is currently stable otherwise. Wound was washed and dressings were applied. Given the extensive nature of the patient's condition he will need ENT evaluation as this would be more appropriate than general surgery given the setting. He is stable for this evaluation. Patient is capitated to outside facility [facility] given insurance reasons safe for transfer and ENT evaluation outside facility. If unable to transfer currently no ENT available here to [facility] and I will be available if necessary. Thank you for let me participate in patient's care Unfortunately [facility] declined transfer. Patient admitted further care and management Was fortunate to have Dr. Nelson ESCALANTE evaluated patient and assist with care and management Bedside attempt of removal of chopsticks from the face was attempted unsuccessful Plan for or this evening (3) Methamphetamine abuse (4) Seroma Wade Segal Oct 16, 2019 14:03
[2019-10-16] MEDS ORDERED: Lidocaine 1% 10mg/ml/Epi 0.005mg/ml 30ml vial INJ ONE (17:32)
[2019-10-16] MEDS ORDERED: Bacitracin Oint 15gm Tube TOPIC ONE (17:32)
[2019-10-16] MEDS ORDERED: Bacitracin 50000 Units Vial ONE (17:32)
[2019-10-16] MEDS ORDERED: Sterile Water Irrig 1000ml IRRIG ONE (18:00)
[2019-10-16] MEDS ORDERED: LR 1000ml ONE (18:00)
[2019-10-16] MEDS ORDERED: Sodium Chloride 10ml vial INJ ONE (18:03)
[2019-10-16] MEDS ORDERED: Lidocaine 1% MPF 10mg/ml 5ml ONE (18:03)
[2019-10-16] MEDS ORDERED: LR 1000ml 1,000 ML IVLG SCH (18:12)
[2019-10-16] MEDS ORDERED: fentaNYL 100 mcg/2 mL IV PRN (18:15)
[2019-10-16] MEDS ORDERED: HYDROcodone/Acetamin 7.5/325 tab ORAL PRN (18:15)
[2019-10-16] MEDS ORDERED: Midazolam 2mg/2ml Inj IVP PRN (18:15)
[2019-10-16] MEDS ORDERED: Meperidine 25mg/0.5ml Inj (FOR RIGORS ONLY) IV PRN (18:15)
[2019-10-16] MEDS ORDERED: oxyCODONE HCL/Acetaminophen 5/325mg ORAL PRN (18:15)
[2019-10-16] MEDS ORDERED: HYDROcodone/Acetamin 5/325 tab ORAL PRN (18:15)
[2019-10-16] MEDS ORDERED: LORazepam Inj 2mg/ml 1ml IV PRN (18:15)
[2019-10-16] MEDS ORDERED: Labetalol 5mg/ml 20ml vial IV PRN (18:15)
[2019-10-16] MEDS ORDERED: DiphenhydrAMINE 50mg/ml Inj IVP PRN (18:15)
[2019-10-16] MEDS ORDERED: Hydromorphone 0.5mg/0.5ml inj IVP PRN (18:15)
[2019-10-16] MEDS ORDERED: Atropine Sulfate 0.4mg/ml inj IVP PRN (18:15)
[2019-10-16] MEDS ORDERED: Metoclopramide 10mg/2ml Inj IVP PRN (18:15)
--- NOTE | 2019-10-16 18:15 | Pre-Procedure Note/Attestation ---
Pre-Procedure Note/Attestation Complete Prior to Procedure Planned Procedure: left Attestation I attest that I discussed the nature of the procedure; its benefits; risks and complications; and alternatives (and the risks and benefits of such alternatives ), prior to the procedure, with the patient (or the patient's legal representative phlebotomy services). I attest that, if there was a reasonable possibility of needing a blood transfusion, the patient (or the patient's legal representative phlebotomy services) was given the [facility] standardized written summary, pursuant to the Norman Chaparrita Blood Safety Act ([place] Health and Safety Code # 1645, as amended). I attest that I re-evaluated the patient just prior to the surgery and that there has been no change in the patient's H&P, except as documented below: John Damon MD Oct 16, 2019 18:15
--- NOTE | 2019-10-16 18:16 | Anethesia Preoperative Eval ---
Anesthesia Pre-op PMH/ROS General Date of Evaluation: Oct 16, 2019 Time of Evaluation: 17:46 Anesthesiologist: Nu ASA Score: ASA 3 Mallampati Score Class I : Soft palate, uvula, fauces, pillars visible Class II: Soft palate, uvula, fauces visible Class III: Soft palate, base of uvula visible Class IV: Only hard plate visible Mallampati Classification: Class III - Unable to open mouth Surgeon: Nelson Diagnosis: Head Foreign Body Surgical Procedure: Remove Head Foreign Body Anesthesia History: none Social History: smoking, current smoker, alcohol use, drug use Family History: no anesthesia problems Allergies: Coded Allergies: No Known Allergies (Unverified , 01/28/18) Medications: see eMAR Patient NPO?: Yes Past Medical History Pulmonary: Reports: COPD PSxH Narrative: Old Mandible Fx Anesthesia Pre-op Phys. Exam Physician Exam Last Vital Signs Date Time Temp Pulse Resp B/P (MAP) Pulse Ox O2 Delivery O2 Flow Rate FiO2 10/16/19 09:00 Room Air 10/16/19 08:00 98.3 100 21 127/80 (96) 99 Constitutional: NAD Neurologic: CN 2-12 intact Cardiovascular: RRR Respiratory: CTA Gastrointestinal: S/NT/ND Airway Exam Mallampati Score: Class III MO: limited - Unable to open mouth Neck: Unable ROM: limited Teeth: missing, intact Anesthesia Pre-op A/P Labs Hematology Test 10/16/19 04:50 White Blood Count 9.1 K/UL (4.8-10.8) Red Blood Count 4.81 M/UL (4.70-6.10) Hemoglobin 14.0 G/DL (14.2-18.0) L Hematocrit 39.2 % (42.0-52.0) L Mean Corpuscular Volume 82 FL (80-99) Mean Corpuscular Hemoglobin 29.1 PG (27.0-31.0) Mean Corpuscular Hemoglobin Concent 35.7 G/DL (32.0-36.0) Red Cell Distribution Width 10.5 % (11.6-14.8) L Platelet Count 169 K/UL (150-450) Mean Platelet Volume 6.2 FL (6.5-10.1) L Neutrophils (%) (Auto) 74.2 % (45.0-75.0) Lymphocytes (%) (Auto) 16.9 % (20.0-45.0) L Monocytes (%) (Auto) 7.9 % (1.0-10.0) Eosinophils (%) (Auto) 0.5 % (0.0-3.0) Basophils (%) (Auto) 0.5 % (0.0-2.0) Chemistry Test 10/16/19 04:50 Sodium Level 141 MMOL/L (136-145) Potassium Level 3.6 MMOL/L (3.5-5.1) Chloride Level 104 MMOL/L (98-107) Carbon Dioxide Level 29 MMOL/L (21-32) Anion Gap 8 mmol/L (5-15) Blood Urea Nitrogen 14 mg/dL (7-18) Creatinine 0.9 MG/DL (0.55-1.30) Estimat Glomerular Filtration Rate > 60 mL/min (>60) Glucose Level 115 MG/DL (74-106) H Calcium Level 8.5 MG/DL (8.5-10.1) Risk Assessment & Plan Assessment: ASA 3 Plan: TIVA, SED, Mask Status Change Before Surgery: No Pre-Antibiotics Dru Gram Ancef IV Given Within 1 Hr of Incision: Yes Time Given: 18:16 Patric Judge MD Oct 16, 2019 18:16
--- NOTE | 2019-10-16 18:20 | Operative Note - PDOC ---
Operative Note Operative Note Date of Operation/Procedure: Oct 16, 2019 Pre-op Diagnosis: left tmporl poign bdy Post-op Diagnosis: same Post-op Diagnosis: same as pre-op Anesthesia: general Specimen: yes Complications: none Condition: stable Estimated Blood Loss: minimal Implant(s) used?: No Indications for Procedure Pt has an ebeddd chopstick in is head. I coul not remove it bedside Description of Procedure pt brought into the OR and identified by name. General ansthesia induced. Preppd and drapd in standard steril fashion. I opnd te piou incision and found the FB. Hmostas obtained. Irrigated. Closd two layers of sutre (ineruped) John Damon MD Oct 16, 2019 18:20
[2019-10-16] MEDS ORDERED: Lidocaine 1% Plain 30 ml INJ ONE ×4 (18:31→20:40)
--- NOTE | 2019-10-16 19:03 | Immediate Post-Op Evaluation ---
Immediate Post-Op Evalulation Immediate Post-Op Evalulation Procedure: Remove Foreign Body From Head Date of Evaluation: Oct 16, 2019 Time of Evaluation: 21:25 IV Fluids: 1400 LR Blood Products: 0 Estimated Blood Loss: 50 Urinary Output: 0 Blood Pressure Systolic: 143 Blood Pressure Diastolic: 105 Pulse Rate: 111 Respiratory Rate: 16 O2 Sat by Pulse Oximetry: 100 Temperature (Fahrenheit): 97.8 Pain Score (1-10): 2 Nausea: No Vomiting: No Complications 0 Patient Status: awake, reacts, patent, none Hydration Status: adequate Dru Gram Ancef IV Given Within 1 Hr of Incision: Yes Time Given: 18:16 Patric Judge MD Oct 16, 2019 19:03
[2019-10-16] MEDS ORDERED: NS Irrig 1000ml IRRIG ONE (19:13)
[2019-10-16] MEDS ORDERED: Surgicel 4in x 8in TOPIC ONE (20:55)
[2019-10-17] MEDS: D5 1/2NS 1,000 ML IV SCH ×2 (01:40→14:08)
[2019-10-17 04:00] VITALS: BP 113/71
[2019-10-17] MEDS: Clindamycin 900mg 50 ML IV SCH ×3 (05:01→22:40)
[2019-10-17] MEDS: Heparin 5000 units/ml inj SUBQ SCH ×3 (05:03→22:42)
[2019-10-17 08:16] VITALS: BP 105/71
--- NOTE | 2019-10-17 11:03 | 48 Hour Post Anesthesia Eval ---
Post Anesthesia Evaluation Procedure: Remove Foreign Body From Head Date of Evaluation: Oct 17, 2019 Time of Evaluation: 11:02 Blood Pressure Systolic: 128 0: 74 Pulse Rate: 82 Respiratory Rate: 20 Temperature (Fahrenheit): 97.6 O2 Sat by Pulse Oximetry: 98 Airway: patent Nausea: No Vomiting: No Pain Intensity: 3 Hydration Status: adequate Cardiopulmonary Status: stable Mental Status/LOC: patient returned to baseline Follow-up Care/Observations: n/a Post-Anesthesia Complications: none Follow-up care needed: N/A Isaac Bhatia MD Oct 17, 2019 11:03
[2019-10-17 12:04] VITALS: BP 112/73
[2019-10-17] MEDS ORDERED: Milk of Magnesia 30ml Ud ORAL PRN (15:00)
--- NOTE | 2019-10-17 15:06 | General Progress Note ---
Assessment/Plan Problem List: (1) Seroma SNOMED: 963921687 (2) Facial cellulitis ICD Codes: L03.211 - Cellulitis of face SNOMED: 393472290 (3) Methamphetamine abuse ICD Codes: F15.10 - Other stimulant abuse, uncomplicated SNOMED: 611900125 (4) Foreign body (FB) in soft tissue ICD Codes: M79.5 - Residual foreign body in soft tissue SNOMED: 145735844, [id number] Status: stable Assessment/Plan: Mr. Azul is a 44 year old male with meth use hx, schizophrenia, presenting with self-inflicted jaw wound while poking his left jaw with a chopstick and part of it broke off into the jaw and didn't come out. #Self-inflicted jaw wound #Presence of foreign body in soft tissue #Hx of schizophrenia #Hx of meth use #Jaw pain -seen by ENT at bedside, attempted bedside removal of foreign body but was unable to. -removal of foreign body in OR (10/15), s/p drain placement. -continue clindamycin (10/15 -) -Surgery following (Dr. Segal). appreciate recs. -Pain control. -outpatient f/u with his schizophrenia and meth use. Time spent on encounter, 37 mins, 20 mins on counseling, coordination of care. Time of note doesn't reflect time of encounter. Subjective Date patient seen: Oct 17, 2019 ROS Limited/Unobtainable: No Constitutional: Denies: no symptoms, chills, diaphoresis, fever, malaise, weakness, other HEENT: Denies: no symptoms, eye pain, blurred vision, tearing, double vision, ear pain, ear discharge, nose pain, nose congestion, throat pain, throat swelling, mouth pain, mouth swelling, other Cardiovascular: Denies: no symptoms, chest pain, edema, irregular heart rate, lightheadedness, palpitations, syncope, other Respiratory: Denies: no symptoms, cough, orthopnea, shortness of breath, SOB with excertion, SOB at rest, sputum, stridor, wheezing, other Gastrointestinal/Abdominal: Denies: no symptoms, abdomen distended, abdominal pain, black stools, tarry stools, blood in stool, constipated, diarrhea, difficulty swallowing, nausea, poor appetite, poor fluid intake, rectal bleeding , vomiting, other Genitourinary: Denies: no symptoms, burning, discharge, frequency, flank pain, hematuria, incontinence, pain, urgency, other Neurologic/Psychiatric: Denies: no symptoms, anxiety, depressed, emotional problems, headache, numbness, paresthesia, pre-existing deficit, seizure, tingling, tremors, weakness, other Endocrine: Denies: no symptoms, excessive sweating, flushing, intolerance to cold, intolerance to heat, increased hunger, increased thirst, increased urine, unexplained weight gain, unexplained weight loss, other Hematologic/Lymphatic: Denies: no symptoms, anemia, easy bleeding, easy bruising, other Allergies: Coded Allergies: No Known Allergies (Unverified , 01/28/18) Subjective resting in bed, has mild post-op pain. no fever, chills. Objective Last 24 Hour Vital Signs Date Time Temp Pulse Resp B/P (MAP) Pulse Ox O2 Delivery O2 Flow Rate FiO2 10/17/19 12:04 98.1 96 19 112/73 (86) 97 10/17/19 11:03 82 20 98 10/17/19 09:00 Room Air 10/17/19 08:16 98.3 94 20 105/71 (82) 95 10/17/19 04:00 97.8 102 20 113/71 (85) 97 10/16/19 22:00 Room Air 10/16/19 21:50 98.5 100 18 136/97 100 Nasal Cannula 3 10/16/19 21:40 96 19 140/94 100 Nasal Cannula 3 10/16/19 21:30 102 15 168/96 100 Nasal Cannula 3 10/16/19 21:20 110 17 151/100 100 Simple Mask 6 10/16/19 21:15 105 18 150/103 100 Simple Mask 6 10/16/19 21:15 111 16 100 10/16/19 21:10 97.8 109 14 146/102 100 Simple Mask 6 10/16/19 16:00 98.1 100 21 121/95 (104) 99 Intake and Output 10/16/19 10/17/19 19:00 07:00 Intake Total 2200 ml Output Total 70 ml Balance 2130 ml Intake Oral 700 ml IV Total 1500 ml Output Drainage Total 20 ml Estimated Blood Loss 50 ml # Voids 3 5 Height (Feet): 5 Height (Inches): 8.00 Weight (Pounds): 170 General Appearance: no apparent distress, alert EENT: other - surgical drain in left jaw area Neck: supple Cardiovascular: normal rate, regular rhythm Respiratory/Chest: lungs clear, normal breath sounds Abdomen: non tender, soft Neurologic: alert, oriented x 3 Sean Desai MD Oct 17, 2019 15:06
[2019-10-17] MEDS: Docusate 100mg cap ORAL SCH (15:08)
--- NOTE | 2019-10-17 15:47 | Surgery Progress Note ---
Surgery Progress Note Subjective Symptoms: improved Additional Comments Patient seen and examined bedside. Last night ENT removed foreign bodies. Doing well today. More awake alert responsive comfortable. Unfortunately he still has this atypical fascination with wanting other portions of his face cut open. He was mildly disappointed that we did not go more medial and superior with incisions to relieve some of the pressure from the pressure points he is identifying that he states he gets better when he does his acupuncture but wishes that we can cut in that area as well. I explained to him this not reasonable as the foreign bodies that required retrieval were not in that area and further making a larger incision in the face is not appropriate at this time. Significant swelling discussed with patient. Drain discussed. Objective Last 24 Hour Vital Signs Date Time Temp Pulse Resp B/P (MAP) Pulse Ox O2 Delivery O2 Flow Rate FiO2 10/17/19 12:04 98.1 96 19 112/73 (86) 97 10/17/19 11:03 82 20 98 10/17/19 09:00 Room Air 10/17/19 08:16 98.3 94 20 105/71 (82) 95 10/17/19 04:00 97.8 102 20 113/71 (85) 97 10/16/19 22:00 Room Air 10/16/19 21:50 98.5 100 18 136/97 100 Nasal Cannula 3 10/16/19 21:40 96 19 140/94 100 Nasal Cannula 3 10/16/19 21:30 102 15 168/96 100 Nasal Cannula 3 10/16/19 21:20 110 17 151/100 100 Simple Mask 6 10/16/19 21:15 105 18 150/103 100 Simple Mask 6 10/16/19 21:15 111 16 100 10/16/19 21:10 97.8 109 14 146/102 100 Simple Mask 6 10/16/19 16:00 98.1 100 21 121/95 (104) 99 I&O Intake and Output 10/16/19 10/17/19 19:00 07:00 Intake Total 2200 ml Output Total 70 ml Balance 2130 ml Intake Oral 700 ml IV Total 1500 ml Output Drainage Total 20 ml Estimated Blood Loss 50 ml # Voids 3 5 Dressing: other Wound: other Drains: odalis Cardiovascular: RSR Respiratory: clear Abdomen: soft, flat, non-tender, present bowel sounds Extremities: no edema, no tenderness, no cyanosis Plan Problems: (1) Facial cellulitis Assessment & Plan: As noted on prior exam, there is significant soft tissue swelling and edema noted in the left temporal/left cheek region. In the left temporal/upper cheek region, there is a new linear foreign body identified embedded above the zygomatic arch. This foreign body measures 3.7 cm. According to history, patient was stabbing this swollen area with a chopstick and this may be a retained fragment of the chopstick. Besides is linear foreign body fragment, there are 2 metallic wire-like fragments in the left temporal region which were present previously. The degree of focal soft tissue swelling and edema has increased. There are also small foci of soft tissue air noted in the left upper ict managers space and left temporal region. This may be related to recent penetrating injury but soft tissue infection is also a consideration. Deformity and bony destruction of the left zygomatic arch noted which appears increased compared to the previous exam. There is focal heterotopic ossification demonstrated. Old fracture of the left mandibular condyle again noted unchanged. Orbits appear intact. The pterygoid plates show normal configuration. Paranasal sinuses are unremarkable. The TMJs are congruent. IMPRESSION: THERE IS A NEW LINEAR FOREIGN BODY IDENTIFIED EMBEDDED IN THE SOFT TISSUE OF THE LEFT TEMPORAL/LEFT UPPER CHEEK REGION JUST ABOVE THE LEFT ZYGOMATIC ARCH. FROM THE PATIENT'S HISTORY, THIS IS LIKELY A RETAINED FRAGMENT OF THE CHOP STICK. FOCAL SOFT TISSUE SWELLING AND EDEMA OF THE LEFT TEMPORAL AND LEFT CHEEK REGION AGAIN NOTED SEEN PREVIOUSLY BUT HAS INCREASED. THERE ARE ALSO SMALL FOCI OF AIR LUCENCIES NOTED WHICH COULD BE RELATED TO THE PENETRATING INJURY OR DEVELOPING SOFT TISSUE INFECTION. THERE ARE METALLIC WIRE-LIKE FOREIGN BODIES NOTED IN THE LEFT TEMPORAL REGION UNCHANGED COMPARED TO PREVIOUS EXAM. REDEMONSTRATION OF DEFORMITY AND BONY DESTRUCTION OF THE LEFT ZYGOMATIC ARCH SLIGHTLY INCREASED COMPARED TO PREVIOUS EXAM. FOCAL HETEROTOPIC OSSIFICATION ALSO AGAIN NOTED. OLD FRACTURE LEFT MANDIBLE CONDYLE UNCHANGED. (2) Foreign body (FB) in soft tissue Assessment & Plan: 44-year-old male with dislodged chopstick fragment in his left temporal region. Patient did have significant bleeding prior currently hemostatic. History of drug abuse. Currently states he has been clean. CT reviewed as below. Unfortunately this is not a simple outpatient procedure in which I can remove the foreign body in the emergency department and send patient home. This is an extensive concern given the location and surrounding anatomy. The perioral muscles facial nerves and temporal artery are within this region patient has significant swelling the duration of this is unknown there are other fragments noted within the subcutaneous and soft tissue from prior "acupuncture". He is currently stable otherwise. Wound was washed and dressings were applied. Given the extensive nature of the patient's condition he will need ENT evaluation as this would be more appropriate than general surgery given the setting. He is stable for this evaluation. Patient is capitated to outside facility [facility] given insurance reasons safe for transfer and ENT evaluation outside facility. If unable to transfer currently no ENT available here to [facility] and I will be available if necessary. Thank you for let me participate in patient's care Unfortunately [facility] declined transfer. Patient admitted further care and management Was fortunate to have Dr. Nelson ESCALANTE evaluated patient and assist with care and management Bedside attempt of removal of chopsticks from the face was attempted unsuccessful Plan for or this evening s/p removal drain okay site okay edema stable d/c planning tomorrow drain output minimal will prob d/c tomorrow (3) Methamphetamine abuse (4) Seroma Wade Segal Oct 17, 2019 15:47
[2019-10-17 16:00] VITALS: BP 121/71
[2019-10-17 20:00] VITALS: BP 111/73
[2019-10-18] VITALS: BP 111/72
[2019-10-18] MEDS: D5 1/2NS 1,000 ML IV SCH ×2 (04:13→17:35)
[2019-10-18 04:23] VITALS: BP 111/75
[2019-10-18] MEDS: Clindamycin 900mg 50 ML IV SCH ×3 (05:46→21:48)
[2019-10-18] MEDS: Heparin 5000 units/ml inj SUBQ SCH ×3 (06:35→21:48)
[2019-10-18 08:00] VITALS: BP 120/90
[2019-10-18] MEDS: HYDROcodone/Acetamin 5/325 tab ORAL PRN ×2 (09:02→18:12)
[2019-10-18] MEDS: Docusate 100mg cap ORAL SCH ×2 (09:03→18:10)
--- NOTE | 2019-10-18 11:05 | Surgery Progress Note ---
Surgery Progress Note Subjective Symptoms: improved, tolerating diet, voiding well, passing flatus, pain decreased Objective Last 24 Hour Vital Signs Date Time Temp Pulse Resp B/P (MAP) Pulse Ox O2 Delivery O2 Flow Rate FiO2 10/18/19 09:00 Room Air 10/18/19 08:00 98.2 80 19 120/90 (100) 98 10/18/19 04:23 98.7 78 19 111/75 (87) 98 10/18/19 00:00 98.5 78 19 111/72 (85) 97 10/17/19 21:00 Room Air 10/17/19 20:00 98.5 93 19 111/73 (86) 96 10/17/19 16:00 97.1 88 19 121/71 (88) 97 10/17/19 12:04 98.1 96 19 112/73 (86) 97 10/17/19 11:03 82 20 98 I&O Intake and Output 10/17/19 10/18/19 19:00 07:00 Intake Total 1330 ml Output Total 10 ml 5 ml Balance 1320 ml -5 ml Intake Oral 480 ml IV Total 850 ml Output Drainage Total 10 ml 5 ml # Voids 4 3 Dressing: dry Wound: clean, dry Drains: odalis Cardiovascular: RSR Respiratory: clear Abdomen: soft, flat, non-tender, present bowel sounds, non-distended Extremities: no edema, no tenderness, no cyanosis Plan Problems: (1) Facial cellulitis Assessment & Plan: As noted on prior exam, there is significant soft tissue swelling and edema noted in the left temporal/left cheek region. In the left temporal/upper cheek region, there is a new linear foreign body identified embedded above the zygomatic arch. This foreign body measures 3.7 cm. According to history, patient was stabbing this swollen area with a chopstick and this may be a retained fragment of the chopstick. Besides is linear foreign body fragment, there are 2 metallic wire-like fragments in the left temporal region which were present previously. The degree of focal soft tissue swelling and edema has increased. There are also small foci of soft tissue air noted in the left upper medical coding instructor space and left temporal region. This may be related to recent penetrating injury but soft tissue infection is also a consideration. Deformity and bony destruction of the left zygomatic arch noted which appears increased compared to the previous exam. There is focal heterotopic ossification demonstrated. Old fracture of the left mandibular condyle again noted unchanged. Orbits appear intact. The pterygoid plates show normal configuration. Paranasal sinuses are unremarkable. The TMJs are congruent. IMPRESSION: THERE IS A NEW LINEAR FOREIGN BODY IDENTIFIED EMBEDDED IN THE SOFT TISSUE OF THE LEFT TEMPORAL/LEFT UPPER CHEEK REGION JUST ABOVE THE LEFT ZYGOMATIC ARCH. FROM THE PATIENT'S HISTORY, THIS IS LIKELY A RETAINED FRAGMENT OF THE CHOP STICK. FOCAL SOFT TISSUE SWELLING AND EDEMA OF THE LEFT TEMPORAL AND LEFT CHEEK REGION AGAIN NOTED SEEN PREVIOUSLY BUT HAS INCREASED. THERE ARE ALSO SMALL FOCI OF AIR LUCENCIES NOTED WHICH COULD BE RELATED TO THE PENETRATING INJURY OR DEVELOPING SOFT TISSUE INFECTION. THERE ARE METALLIC WIRE-LIKE FOREIGN BODIES NOTED IN THE LEFT TEMPORAL REGION UNCHANGED COMPARED TO PREVIOUS EXAM. REDEMONSTRATION OF DEFORMITY AND BONY DESTRUCTION OF THE LEFT ZYGOMATIC ARCH SLIGHTLY INCREASED COMPARED TO PREVIOUS EXAM. FOCAL HETEROTOPIC OSSIFICATION ALSO AGAIN NOTED. OLD FRACTURE LEFT MANDIBLE CONDYLE UNCHANGED. (2) Foreign body (FB) in soft tissue Assessment & Plan: 44-year-old male with dislodged chopstick fragment in his left temporal region. Patient did have significant bleeding prior currently hemostatic. History of drug abuse. Currently states he has been clean. CT reviewed as below. Unfortunately this is not a simple outpatient procedure in which I can remove the foreign body in the emergency department and send patient home. This is an extensive concern given the location and surrounding anatomy. The perioral muscles facial nerves and temporal artery are within this region patient has significant swelling the duration of this is unknown there are other fragments noted within the subcutaneous and soft tissue from prior "acupuncture". He is currently stable otherwise. Wound was washed and dressings were applied. Given the extensive nature of the patient's condition he will need ENT evaluation as this would be more appropriate than general surgery given the setting. He is stable for this evaluation. Patient is capitated to outside facility [facility] given insurance reasons safe for transfer and ENT evaluation outside facility. If unable to transfer currently no ENT available here to [facility] and I will be available if necessary. Thank you for let me participate in patient's care Unfortunately [facility] declined transfer. Patient admitted further care and management Was fortunate to have Dr. Damon ENT evaluated patient and assist with care and management Bedside attempt of removal of chopsticks from the face was attempted unsuccessful Plan for or this evening s/p removal drain okay site okay edema stable d/c planning tomorrow drain output minimal will prob d/c tomorrow drain removed 10/17. scant output edema stable pain improved no n/v/f/c Rx written - ibuprofen 600, augmentin, colace d/c today long discussion with patient at bedside. care instructions given in detail. okay to shower. keep site clean. dressings daily and prn (gauze dressings ). do not use dirty bandana as dressings. follow up with PCP for referral to ENT in network for staple removal and follow up. thank you return if worsening condition, fever, chills, nausea, emesis. drainage. (3) Methamphetamine abuse (4) Seroma Wade Segal Oct 18, 2019 11:05
[2019-10-18] MEDS ORDERED: IBUPROFEN600 M1 ORAL (11:07)
[2019-10-18] MEDS ORDERED: AUGMENTIN 875-1 EAC1 ORAL (11:07)
[2019-10-18] MEDS ORDERED: COLACE100 MG ORAL (11:07)
--- NOTE | 2019-10-18 11:08 | Discharge Instructions ---
Discharge Instructions Discharge Instructions Follow up with: PCP for referral to ENT in network. needs staple remove and f/ u care Call MD/Return to Hospital if: fever, chills, drainage, worsening condition Diet: regular Resume Normal Activity?: Yes Activity: resume normal activities For Surgical Patients Dressing Care: may change May shower: Yes Contact your physician for: bleeding, pain, tenderness, redness, swelling, yellowish discharge in the op. site For Congestive Heart Failure Reminder Report to your physician any weight gain of 5 pounds or more in one week. Wade Segal Oct 18, 2019 11:08
[2019-10-18 16:00] VITALS: BP 118/85
--- NOTE | 2019-10-18 16:55 | Internal Med Progress Note ---
Subjective Date of Service: Oct 18, 2019 Physician Name Teri Finney Attending Physician Bobby Cabello MD Current Medications Medications (Trade) Dose Ordered Sig/Barby Route PRN Reason Start Time Stop Time Status Last Admin Dose Admin Acetaminophen (Tylenol) 650 mg Q4H PRN RECTAL Mild Pain (Pain Scale 1-3) 10/15/19 22:00 11/14/19 21:59 Acetaminophen (Tylenol) 650 mg Q4H PRN RECTAL Temp >100.5 10/15/19 22:00 11/14/19 21:59 Acetaminophen/ Hydrocodone Bitart (Lorraine 5/325) 1 tab Q6H PRN ORAL For Pain 10/17/19 20:00 10/24/19 19:59 10/18/19 09:02 Clindamycin/ Sodium Chloride 50 ml @ 100 mls/hr Q8HR IV 10/15/19 23:00 10/22/19 22:59 10/18/19 15:30 Dextrose (Dextrose 50%) 25 ml Q30M PRN IV Hypoglycemia 10/15/19 22:00 01/13/20 21:59 Dextrose (Dextrose 50%) 50 ml Q30M PRN IV Hypoglycemia 10/15/19 22:00 01/13/20 21:59 Dextrose/Sodium Chloride 1,000 ml @ 75 mls/hr [id number] IV 10/15/19 22:55 11/14/19 22:54 10/18/19 04:13 Docusate Sodium (Colace) 100 mg TWICE A DAY ORAL 10/17/19 15:00 11/16/19 14:59 10/18/19 09:03 Heparin Sodium (Porcine) (Heparin 5000 units/ml) 5,000 units EVERY 8 HOURS SUBQ 10/15/19 23:00 11/29/19 22:59 10/18/19 06:35 Lorazepam (Ativan 2mg/ml 1ml) 0.5 mg Q4H PRN IV For Anxiety 10/15/19 22:00 10/22/19 21:59 10/16/19 23:02 Magnesium Hydroxide (Mom) 30 ml HSPRN PRN ORAL Constipation 10/17/19 15:00 11/16/19 14:59 Morphine Sulfate (Morphine Sulfate) 2 mg Q4H PRN IVP Moderate Pain (Pain Scale 4-6) 10/15/19 22:00 10/22/19 21:59 Morphine Sulfate (Morphine Sulfate) 4 mg Q4H PRN IVP Severe Pain (Pain Scale 7-10) 10/15/19 22:00 10/22/19 21:59 10/15/19 23:31 Ondansetron HCl (Zofran) 4 mg Q6H PRN IVP Nausea & Vomiting 10/15/19 22:00 11/14/19 21:59 Allergies: Coded Allergies: No Known Allergies (Unverified , 01/28/18) Subjective Patient visited this am; drain pulled per surgery and patient cleared for discharge w/ AB. Stable and doing well. Agrees with plan. 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 Drain pulled and AB prescribed. Will need outpatient follow up and psych management. Teri Finney D.O. Oct 18, 2019 16:55
[2019-10-18 20:00] VITALS: BP 116/78
[2019-10-19] MEDS: D5 1/2NS 1,000 ML IV SCH ×3 (02:00→20:15)
[2019-10-19 04:00] VITALS: BP 102/68
[2019-10-19] MEDS: Clindamycin 900mg 50 ML IV SCH ×3 (05:02→21:52)
[2019-10-19] MEDS: Heparin 5000 units/ml inj SUBQ SCH ×3 (05:10→21:51)
[2019-10-19 08:00] VITALS: BP 123/83
[2019-10-19 09:00] VITALS: BP 126/84
[2019-10-19] MEDS: Docusate 100mg cap ORAL SCH ×2 (09:02→18:00)
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
[2019-10-19 12:00] VITALS: BP 126/84
--- NOTE | 2019-10-19 13:12 | Internal Med Progress Note ---
Subjective Date of Service: Oct 19, 2019 Physician Name Teri Finney Attending Physician Bobby Cabello MD Current Medications Medications (Trade) Dose Ordered Sig/Barby Route PRN Reason Start Time Stop Time Status Last Admin Dose Admin Acetaminophen (Tylenol) 650 mg Q4H PRN RECTAL Mild Pain (Pain Scale 1-3) 10/15/19 22:00 11/14/19 21:59 Acetaminophen (Tylenol) 650 mg Q4H PRN RECTAL Temp >100.5 10/15/19 22:00 11/14/19 21:59 Acetaminophen/ Hydrocodone Bitart ([place]y 5/325) 1 tab Q6H PRN ORAL For Pain 10/17/19 20:00 10/24/19 19:59 10/18/19 18:12 Clindamycin/ Sodium Chloride 50 ml @ 100 mls/hr Q8HR IV 10/15/19 23:00 10/22/19 22:59 10/19/19 05:02 Dextrose (Dextrose 50%) 25 ml Q30M PRN IV Hypoglycemia 10/15/19 22:00 01/13/20 21:59 Dextrose (Dextrose 50%) 50 ml Q30M PRN IV Hypoglycemia 10/15/19 22:00 01/13/20 21:59 Dextrose/Sodium Chloride 1,000 ml @ 75 mls/hr [id number] IV 10/15/19 22:55 11/14/19 22:54 10/19/19 02:00 Docusate Sodium (Colace) 100 mg TWICE A DAY ORAL 10/17/19 15:00 11/16/19 14:59 10/19/19 09:02 Heparin Sodium (Porcine) (Heparin 5000 units/ml) 5,000 units EVERY 8 HOURS SUBQ 10/15/19 23:00 11/29/19 22:59 10/18/19 06:35 Lorazepam (Ativan 2mg/ml 1ml) 0.5 mg Q4H PRN IV For Anxiety 10/15/19 22:00 10/22/19 21:59 10/16/19 23:02 Magnesium Hydroxide (Mom) 30 ml HSPRN PRN ORAL Constipation 10/17/19 15:00 11/16/19 14:59 Morphine Sulfate (Morphine Sulfate) 2 mg Q4H PRN IVP Moderate Pain (Pain Scale 4-6) 10/15/19 22:00 10/22/19 21:59 Morphine Sulfate (Morphine Sulfate) 4 mg Q4H PRN IVP Severe Pain (Pain Scale 7-10) 10/15/19 22:00 10/22/19 21:59 10/15/19 23:31 Ondansetron HCl (Zofran) 4 mg Q6H PRN IVP Nausea & Vomiting 10/15/19 22:00 11/14/19 21:59 Allergies: Coded Allergies: No Known Allergies (Unverified , 01/28/18) Subjective Patient was discharged yesterday however he is refusing to leave; discussed with surgery and have consulted social work. Objective Last Vital Signs Date Time Temp Pulse Resp B/P (MAP) Pulse Ox O2 Delivery O2 Flow Rate FiO2 10/19/19 08:00 98.7 78 17 123/83 (96) 98 10/18/19 22:29 Room Air 10/16/19 21:50 3 Microbiology Date/Time Source Procedure Growth Status 10/16/19 14:15 Nasopharynx SARS-CoV-2 RdRp Gene Assay - Final Complete Intake and Output 10/18/19 10/19/19 19:00 07:00 Intake Total 700 ml 500 ml Balance 700 ml 500 ml Intake Oral 700 ml 500 ml # Voids 4 5 Objective General Appearance: WD/WN EENT: other - Facial wrap, gauze, bandage in place; s/p drain pull Cardiovascular: normal rate, regular rhythm, regularly irregular Respiratory/Chest: lungs clear, normal breath sounds, no respiratory distress Abdomen: non tender, soft, no organomegaly Genitourinary/Rectal: other Extremities: normal range of motion Neurologic: test administrator II-XII grossly normal, alert Skin: warm/dry Assessment/Plan Assessment/Plan Assessment #Foreign Body/Jaw Wound, s/p surgical intervention #Psych Hx, Schizophrenia Patient has been cleared for d/c on 10/17. Drain pulled and AB prescribed. Will need outpatient follow up and psych management. 10/18: d/c yesterday however refusing to leave; f/u with social work Teri Finney D.O. Oct 19, 2019 13:12
[2019-10-19 16:00] VITALS: BP 121/82
[2019-10-19] MEDS: HYDROcodone/Acetamin 5/325 tab ORAL PRN (16:38)
[2019-10-19] MEDS ORDERED: NS 275ml ONE (17:51)
[2019-10-19 20:00] VITALS: BP 115/75
[2019-10-20] VITALS: BP 98/64
[2019-10-20] MEDS: HYDROcodone/Acetamin 5/325 tab ORAL PRN ×2 (02:58→10:03)
[2019-10-20 04:00] VITALS: BP 124/80
[2019-10-20] MEDS: D5 1/2NS 1,000 ML IV SCH (04:54)
[2019-10-20] MEDS: Clindamycin 900mg 50 ML IV SCH (04:59)
[2019-10-20] MEDS: Heparin 5000 units/ml inj SUBQ SCH (05:00)
[2019-10-20] MEDS: Docusate 100mg cap ORAL SCH (10:03)
--- NOTE | 2019-10-20 12:46 | Discharge Summary ---
Discharge Summary Hospital Course Date of Admission Oct 15, 2019 at 21:02 Date of Discharge Admitting Diagnosis FACIAL FOREIGN BODY HPI Ulises Azul is a 44 year old male who was admitted on Oct 15, 2019 at 21:02 for Facial Foreign Body Hospital Course Assessment #Foreign Body/Jaw Wound, s/p surgical intervention #Psych Hx, Schizophrenia Patient has been cleared for d/c on 10/17. Drain pulled and AB prescribed. Will need outpatient follow up and psych management. 10/18: d/c yesterday however refusing to leave; f/u with social work Patient is cleared for discharge; Appreciate Social Work. Will request Teri Finney D.O. Oct 19, 2019 13:12 Discharge Discharge Vital Signs Last Vital Signs Date Time Temp Pulse Resp B/P (MAP) Pulse Ox O2 Delivery O2 Flow Rate FiO2 10/20/19 10:33 97.4 10/20/19 04:00 75 19 124/80 (95) 97 10/19/19 21:00 Room Air 10/16/19 21:50 3 Discharge Disposition Patient was discharged to Discharge Instructions Discharge Instructions Follow up with: PCP for referral to ENT in network. needs staple remove and f/ u care Call MD/Return to Hospital if: fever, chills, drainage, worsening condition Activity: resume normal activities For Surgical Patients Dressing Care: may change May shower: Yes Contact your physician for: bleeding, pain, tenderness, redness, swelling, yellowish discharge in the op. site Teri Finney D.O. Oct 20, 2019 12:46
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
[2019-10-20] MEDS ORDERED: D5 1/2NS 1000ml IV ONE ×2 (15:39)
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
== END 2019-10-20 15:40 | disposition home health service (06) | DRG 384 ==
LOC: EDBD 07:57 → EMR 08:10 → 3E 21:02 → EDBEDREQ 21:56
PROC: 0JC10ZZ Extirpation of Matter from Face Subcutaneous Tissue and Fascia, Open Approach (ICD-10-PCS; principal; 2019-10-16 18:00)
DX: S01.442A Puncture wound with foreign body of left cheek and temporomandibular area, initial encounter (principal); X58.XXXA Exposure to other specified factors, initial encounter; L03.211 Cellulitis of face; F15.10 Other stimulant abuse, uncomplicated; F17.200 Nicotine dependence, unspecified, uncomplicated; F20.9 Schizophrenia, unspecified
CPT/HCPCS: 36415; 70486; 76000; 80048; 80053; 80307; 85007; 85025; 94003; 94150; 96361; 96365; 96375; 99285; G0480; J2405; J7030; S0077